=== PATIENT | male | born 1980 | race African-American/Black ===

== ENCOUNTER 2017-07-15 16:19 | Inpatient (IN) ==
[2017-07-15] MEDS ORDERED: ASPIRIN 325 MG TABLET PO STA (17:21)
[2017-07-15 17:39] LABS: Basophils # 0.1 10*3/uL (0.0-0.2); Basophils % 0.4 % (0.0-0.8); Eosinophils # 0.1 10*3/uL (0.0-0.87); Eosinophils % 0.6 % (0.00-10.9); Hematocrit 27.7 VOL% (42.0-52.0); Hemoglobin 8.8 GM/DL (14.0-18.0); Immature Granulocytes % 0.4 %; Immature Granulocytes Absolute 0.05 #; Lymphocytes # 1.1 10*3/uL (1.4-4.0); Lymphocytes % 9.1 % (21.2-54.2); Mean Corpuscular HGB Conc 31.8 GM/DL (32-36); Mean Corpuscular Hemoglobin 29 PG (27-34); Mean Corpuscular Volume 90.2 FL (87-102); Mean Platelet Volume 10.4 FL (9.6-12.0); Monocytes # 0.5 10*3/uL (0.11-0.8); Monocytes % 4.3 % (1.7-12.7); Neutrophils # 10.7 10*3/uL (1.4-7.4); Neutrophils % 85.2 % (38.7-73.9); Platelet Count 178 T/CUMM (130-400); Red Blood Count 3.07 MC/CUMM (3.8-5.5); Red Cell Distribution Width 17.3 % (9.3-17.3); White Blood Count 12.5 T/CUMM (4-12)
[2017-07-15] MEDS ORDERED: niCARdipine 25 MG/10 ML VIAL IV ONE (17:44)
[2017-07-15] MEDS: niCARdipine INJ 25 MG in SODIUM CHLORIDE 0.9% 240 ML IV SCH (17:45)
[2017-07-15 17:59] LABS: Calcium 8.3 MG/DL (8.5-10.1); Osmolality,Calculated 307.2 MOS/KG (273-304); Potassium 3.7 MMOL/L (3.5-5.1)
[2017-07-15] MEDS ORDERED: amLODIPine 5 MG TABLET PO STA (18:55)
[2017-07-15 19:13] LABS: Basophils % 0.3 % (0.0-0.8); Eosinophils # 0.1 10*3/uL (0.0-0.87); Eosinophils % 0.5 % (0.00-10.9); Hematocrit 27.1 VOL% (42.0-52.0); Hemoglobin 8.7 GM/DL (14.0-18.0); Immature Granulocytes % 0.4 %; Immature Granulocytes Absolute 0.05 #; Lymphocytes # 1.1 10*3/uL (1.4-4.0); Lymphocytes % 8.4 % (21.2-54.2); Mean Corpuscular HGB Conc 32.1 GM/DL (32-36); Mean Corpuscular Hemoglobin 29 PG (27-34); Mean Corpuscular Volume 89.7 FL (87-102); Mean Platelet Volume 10.5 FL (9.6-12.0); Monocytes # 0.6 10*3/uL (0.11-0.8); Monocytes % 4.7 % (1.7-12.7); Neutrophils # 11.1 10*3/uL (1.4-7.4); Neutrophils % 85.7 % (38.7-73.9); Platelet Count 178 T/CUMM (130-400); Red Blood Count 3.02 MC/CUMM (3.8-5.5); Red Cell Distribution Width 17.5 % (9.3-17.3); White Blood Count 12.9 T/CUMM (4-12)
[2017-07-15 19:30] LABS: Folate 8.2 NG/ML (5.4-24.0); Vitamin B12 1041 PG/ML (211-911)
[2017-07-15 20:12] LABS: Sedimentation Rate-Westergren 46 MM/HR (0-15)
[2017-07-15] MEDS ORDERED: amLODIPine 10 MG TABLET ONE (20:16)
[2017-07-15 20:21] LABS: Band Neutrophils 1 % (0-10); Lymphocytes 6 % (20-55); Platelet Estimate Normal; Segmented Neutrophils 92 % (50-85); Total Cells Counted 100
[2017-07-15] MEDS: ENOXAPARIN 30 MG/0.3 ML SYRINGE SUBCUT SCH (20:31)
[2017-07-15] MEDS: cloNIDine 0.1 MG TABLET PO SCH (20:32)
[2017-07-15] MEDS: ACETAMINOPHEN 325 MG TABLET PO PRN (20:48)
[2017-07-16] MEDS: niCARdipine INJ 25 MG in SODIUM CHLORIDE 0.9% 240 ML IV SCH (00:39)
[2017-07-16] MEDS: ONDANSETRON 4 MG/2 ML VIAL IV PRN ×2 (00:42→06:00)
[2017-07-16 00:53] LABS: Basophils % 0.4 % (0.0-0.8); Eosinophils # 0.1 10*3/uL (0.0-0.87); Eosinophils % 1.1 % (0.00-10.9); Hematocrit 24.9 VOL% (42.0-52.0); Immature Granulocytes % 0.5 %; Immature Granulocytes Absolute 0.06 #; Lymphocytes # 1.5 10*3/uL (1.4-4.0); Lymphocytes % 12.9 % (21.2-54.2); Mean Corpuscular HGB Conc 32.1 GM/DL (32-36); Mean Corpuscular Hemoglobin 29 PG (27-34); Mean Corpuscular Volume 89.6 FL (87-102); Monocytes # 0.7 10*3/uL (0.11-0.8); Monocytes % 5.8 % (1.7-12.7); Neutrophils % 79.3 % (38.7-73.9); Platelet Count 171 T/CUMM (130-400); Red Blood Count 2.78 MC/CUMM (3.8-5.5); Red Cell Distribution Width 17.4 % (9.3-17.3); White Blood Count 11.3 T/CUMM (4-12)
[2017-07-16 01:02] LABS: Calcium 8.2 MG/DL (8.5-10.1); Osmolality,Calculated 304.4 MOS/KG (273-304); Potassium 3.5 MMOL/L (3.5-5.1)
[2017-07-16] MEDS: MORPHINE 4 MG/1 ML VIAL IV PRN (06:01)
[2017-07-16] MEDS: cloNIDine 0.1 MG TABLET PO SCH ×3 (09:50→21:19)
[2017-07-16] MEDS: PANTOPRAZOLE 40 MG TABLET PO SCH (09:50)
[2017-07-16] MEDS: amLODIPine 10 MG TABLET PO SCH (09:50)
[2017-07-16 10:04] LABS: % Iron Saturation 11.4 % (18-50); Albumin 3.5 G/DL (3.4-5.0); Bilirubin,Direct 0.23 MG/DL (0.0-0.20); Bilirubin,Indirect 0.4 MG/DL (0.0-1.0); Bilirubin,Total 0.6 MG/DL (0.2-1.0); Total Protein 6.2 G/DL (6.4-8.3); Uric Acid 12.9 MG/DL (3.5-7.2)
[2017-07-16] MEDS ORDERED: hydrALAZINE 25 MG TABLET PO SCH (10:30)
[2017-07-16 10:34] LABS: Hepatitis A Ab IgM Quant 0.21 Index; Hepatitis A Ab IgM Result Negative (Negative); Hepatitis B Core IgM Quant 0.21 Index; Hepatitis B Core IgM Result Negative (Negative); Hepatitis B Surface Ag Quant < 0.10 Index; Hepatitis B Surface Ag Result Negative (Negative); Hepatitis C Virus Ab Quant 0.18 Index; Hepatitis C Virus Ab Result Negative (Negative)
[2017-07-16 12:42] LABS: Apearance,Urine Clear (Clear); Bilirubin,Urine Negative (Negative); Blood, Urine Negative (Negative); Glucose,Urine (UA) Negative (Negative); Ketones,Urine Negative (Negative); Nitrite,Urine Negative (Negative); Protein,Urine 100 MG/DL; RBC,Urine 0-1 /HPF (0-4); Squamous Epithelial Cell,Urine Occasional /HPF (0-10); Urine Color Yellow (Yellow); Urine Specific Gravity 1.005 (1.001-1.035); Urine Urobilinogen 0.2 EU/DL (0.2-1.0); WBC,Urine 0-3 /HPF (0-6)
[2017-07-16 12:43] LABS: Mucus,Urine Few /LPF (Occasional)
[2017-07-16 13:04] LABS: Barbiturates Screen,Urine Negative (Negative); Benzodiazepines Screen,Urine Negative (Negative); Cannabinoid Screen,Urine Negative (Negative); Opiate Screen,Urine Negative (Negative); Phencyclidine Screen,Urine Negative (Negative)
[2017-07-16 13:37] LABS: Total Protein,Urine Random 147 MG/DL; Urea Nitrogen, Urine Random 679 MG/DL
[2017-07-16] MEDS: ALFUZOSIN 10 MG TABLET PO SCH (17:08)
[2017-07-16] MEDS: ALLOPURINOL 100 MG TABLET PO SCH (17:08)
[2017-07-16] MEDS: CALCITRIOL 0.25 MCG CAPSULE PO SCH (17:08)
[2017-07-16] MEDS: IRON SUCROSE 200 MG in SODIUM CHLORIDE 0.9% 100 ML IV SCH (17:09)
[2017-07-16] MEDS: hydrALAZINE 20 MG/1 ML VIAL IV PRN (19:23)
[2017-07-16] MEDS: ENOXAPARIN 30 MG/0.3 ML SYRINGE SUBCUT SCH (21:19)
[2017-07-17] MEDS: hydrALAZINE 20 MG/1 ML VIAL IV PRN ×2 (01:46→05:35)
[2017-07-17 06:25] LABS: Basophils % 0.4 % (0.0-0.8); Eosinophils # 0.1 10*3/uL (0.0-0.87); Eosinophils % 0.9 % (0.00-10.9); Hematocrit 25.6 VOL% (42.0-52.0); Immature Granulocytes % 0.9 %; Lymphocytes # 1.3 10*3/uL (1.4-4.0); Lymphocytes % 11.6 % (21.2-54.2); Mean Corpuscular HGB Conc 31.3 GM/DL (32-36); Mean Corpuscular Hemoglobin 28 PG (27-34); Mean Corpuscular Volume 90.5 FL (87-102); Mean Platelet Volume 9.8 FL (9.6-12.0); Monocytes # 0.7 10*3/uL (0.11-0.8); Monocytes % 6.9 % (1.7-12.7); NRBC # 0.02 10*3/uL; Neutrophils # 8.5 10*3/uL (1.4-7.4); Neutrophils % 79.3 % (38.7-73.9); Platelet Count 191 T/CUMM (130-400); Red Blood Count 2.83 MC/CUMM (3.8-5.5); Red Cell Distribution Width 17.6 % (9.3-17.3); White Blood Count 10.8 T/CUMM (4-12)
[2017-07-17 06:42] LABS: INR 1.2; PT Patient Result 12.7 SECS; Partial Thromboplastin Time 30.3 SECS (0-40)
[2017-07-17 06:52] LABS: Calcium 8.3 MG/DL (8.5-10.1); Osmolality,Calculated 306.4 MOS/KG (273-304); Potassium 3.8 MMOL/L (3.5-5.1)
[2017-07-17 08:22] LABS: HIV Antigen/Antibody Result Nonreactive (Nonreactive)
[2017-07-17] MEDS ORDERED: EPOETIN ALFA 10,000 UNIT/1 ML VIAL IV ONE (09:18)
[2017-07-17] MEDS: CALCITRIOL 0.25 MCG CAPSULE PO SCH (09:24)
[2017-07-17] MEDS: cloNIDine 0.1 MG TABLET PO SCH (09:24)
[2017-07-17] MEDS: amLODIPine 10 MG TABLET PO SCH (09:24)
[2017-07-17] MEDS: ALFUZOSIN 10 MG TABLET PO SCH (09:24)
[2017-07-17] MEDS: IRON SUCROSE 200 MG in SODIUM CHLORIDE 0.9% 100 ML IV SCH (09:25)
[2017-07-17] MEDS: PANTOPRAZOLE 40 MG TABLET PO SCH (09:25)
[2017-07-17] MEDS: ALLOPURINOL 100 MG TABLET PO SCH (09:25)
[2017-07-17] MEDS ORDERED: CLINDAMYCIN INJ 900 MG in PREMIX 1 EACH IV ONE (11:43)
[2017-07-17] MEDS: CARVEDILOL 6.25 MG TABLET PO SCH ×2 (15:54→21:14)
[2017-07-17] MEDS: ENOXAPARIN 30 MG/0.3 ML SYRINGE SUBCUT SCH (21:13)
[2017-07-18] MEDS: hydrALAZINE 20 MG/1 ML VIAL IV PRN (05:58)
[2017-07-18] MEDS ORDERED: BUPIVACAINE 0.25% 50 ML VIAL ONE (06:18)
[2017-07-18] MEDS ORDERED: LIDOCAINE 1%/EPI INJ 20 ML VIAL ONE (06:18)
[2017-07-18] MEDS ORDERED: HEPARIN 5,000 UNIT/1 ML VIAL ONE (06:18)
[2017-07-18] MEDS ORDERED: CLINDAMYCIN INJ 50 ML IV ONE (06:58)
[2017-07-18] MEDS ORDERED: PROPOFOL 200 MG/20 ML VIAL IV ONE (08:16)
[2017-07-18] MEDS ORDERED: ONDANSETRON 4 MG/2 ML VIAL ONE (08:16)
[2017-07-18] MEDS ORDERED: SODIUM CHLORIDE 0.9% 100 ML IV ONE (08:16)
[2017-07-18] MEDS ORDERED: fentaNYL 100 MCG/2 ML VIAL ONE (08:16)
[2017-07-18] MEDS ORDERED: MIDAZOLAM 2 MG/2 ML VIAL ONE (08:16)
[2017-07-18] MEDS: amLODIPine 10 MG TABLET PO SCH (08:39)
[2017-07-18] MEDS: CALCITRIOL 0.25 MCG CAPSULE PO SCH (08:39)
[2017-07-18] MEDS: PANTOPRAZOLE 40 MG TABLET PO SCH (08:39)
[2017-07-18] MEDS: ALLOPURINOL 100 MG TABLET PO SCH (08:39)
[2017-07-18] MEDS: CARVEDILOL 6.25 MG TABLET PO SCH ×2 (08:39→20:58)
[2017-07-18] MEDS: ALFUZOSIN 10 MG TABLET PO SCH (08:39)
[2017-07-18] MEDS: IRON SUCROSE 200 MG in SODIUM CHLORIDE 0.9% 100 ML IV SCH (08:43)
[2017-07-18 09:19] LABS: Basophils % 0.3 % (0.0-0.8); Eosinophils # 0.1 10*3/uL (0.0-0.87); Eosinophils % 1.2 % (0.00-10.9); Hematocrit 25.5 VOL% (42.0-52.0); Hemoglobin 8.3 GM/DL (14.0-18.0); Immature Granulocytes % 1.8 %; Immature Granulocytes Absolute 0.19 #; Lymphocytes # 1.2 10*3/uL (1.4-4.0); Lymphocytes % 11.2 % (21.2-54.2); Mean Corpuscular HGB Conc 32.5 GM/DL (32-36); Mean Corpuscular Hemoglobin 29 PG (27-34); Mean Corpuscular Volume 89.2 FL (87-102); Mean Platelet Volume 10.4 FL (9.6-12.0); Monocytes # 0.8 10*3/uL (0.11-0.8); Monocytes % 7.5 % (1.7-12.7); NRBC # 0.03 10*3/uL; Neutrophils # 8.3 10*3/uL (1.4-7.4); Platelet Count 204 T/CUMM (130-400); Red Blood Count 2.86 MC/CUMM (3.8-5.5); Red Cell Distribution Width 18.4 % (9.3-17.3); White Blood Count 10.6 T/CUMM (4-12)
[2017-07-18 09:39] LABS: Calcium 8.2 MG/DL (8.5-10.1); Osmolality,Calculated 300.8 MOS/KG (273-304); Potassium 3.9 MMOL/L (3.5-5.1)
[2017-07-18 09:42] LABS: Hepatitis A Ab IgM Quant 0.25 Index; Hepatitis A Ab IgM Result Negative (Negative); Hepatitis B Core IgM Quant 0.21 Index; Hepatitis B Core IgM Result Negative (Negative); Hepatitis B Surface Ag Quant < 0.10 Index; Hepatitis B Surface Ag Result Negative (Negative); Hepatitis C Virus Ab Quant 0.18 Index; Hepatitis C Virus Ab Result Negative (Negative)
[2017-07-18 10:37] LABS: ANA Screen 0.2 (NEGATIVE)
[2017-07-18] MEDS ORDERED: HEPARIN 10,000 UNIT/10 ML VIAL IV PRN (11:36)
[2017-07-18] MEDS ORDERED: EPOETIN ALFA 10,000 UNIT/1 ML VIAL IV PRN (11:43)
[2017-07-18] MEDS: ACETAMINOPHEN 325 MG TABLET PO PRN (15:52)
[2017-07-18] MEDS: MORPHINE 4 MG/1 ML VIAL IV PRN (20:58)
[2017-07-18] MEDS: ENOXAPARIN 30 MG/0.3 ML SYRINGE SUBCUT SCH (21:00)
[2017-07-18] MEDS: ONDANSETRON 4 MG/2 ML VIAL IV PRN (21:36)
[2017-07-19] MEDS: hydrALAZINE 20 MG/1 ML VIAL IV PRN (01:03)
[2017-07-19] MEDS: ACETAMINOPHEN 325 MG TABLET PO PRN (03:01)
[2017-07-19] MEDS: ONDANSETRON 4 MG/2 ML VIAL IV PRN (03:05)
[2017-07-19 06:58] LABS: Basophils % 0.4 % (0.0-0.8); Eosinophils # 0.1 10*3/uL (0.0-0.87); Eosinophils % 0.5 % (0.00-10.9); Hematocrit 25.6 VOL% (42.0-52.0); Hemoglobin 8.1 GM/DL (14.0-18.0); Immature Granulocytes % 1.5 %; Immature Granulocytes Absolute 0.17 #; Lymphocytes # 0.9 10*3/uL (1.4-4.0); Lymphocytes % 7.8 % (21.2-54.2); Mean Corpuscular HGB Conc 31.6 GM/DL (32-36); Mean Corpuscular Hemoglobin 29 PG (27-34); Mean Corpuscular Volume 90.8 FL (87-102); Mean Platelet Volume 11.2 FL (9.6-12.0); Monocytes # 0.9 10*3/uL (0.11-0.8); Monocytes % 7.7 % (1.7-12.7); NRBC # 0.02 10*3/uL; Neutrophils % 82.1 % (38.7-73.9); Platelet Count 224 T/CUMM (130-400); Red Blood Count 2.82 MC/CUMM (3.8-5.5); Red Cell Distribution Width 18.1 % (9.3-17.3)
[2017-07-19 07:23] LABS: Albumin 3.4 G/DL (3.4-5.0); Calcium 8.5 MG/DL (8.5-10.1); Osmolality,Calculated 297.5 MOS/KG (273-304); Potassium 3.9 MMOL/L (3.5-5.1)
[2017-07-19] MEDS: IRON SUCROSE 200 MG in SODIUM CHLORIDE 0.9% 100 ML IV SCH (08:11)
[2017-07-19] MEDS: CARVEDILOL 6.25 MG TABLET PO SCH ×2 (08:11→20:59)
[2017-07-19] MEDS: PANTOPRAZOLE 40 MG TABLET PO SCH (08:11)
[2017-07-19] MEDS: ALFUZOSIN 10 MG TABLET PO SCH (08:11)
[2017-07-19] MEDS: CALCITRIOL 0.25 MCG CAPSULE PO SCH (08:11)
[2017-07-19] MEDS: ALLOPURINOL 100 MG TABLET PO SCH (08:11)
[2017-07-19] MEDS: amLODIPine 10 MG TABLET PO SCH (08:11)
[2017-07-19 15:21] LABS: Myeloperoxidase Antibody < 0.2 U
[2017-07-19] MEDS: IBUPROFEN 600 MG TABLET PO SCH (20:59)
[2017-07-19] MEDS: ENOXAPARIN 30 MG/0.3 ML SYRINGE SUBCUT SCH (21:00)
[2017-07-20] MEDS: hydrALAZINE 20 MG/1 ML VIAL IV PRN (05:55)
[2017-07-20 07:37] LABS: Albumin 3.2 G/DL (3.4-5.0); Calcium 8.4 MG/DL (8.5-10.1); Osmolality,Calculated 285.4 MOS/KG (273-304); Potassium 3.6 MMOL/L (3.5-5.1)
[2017-07-20] MEDS ORDERED: LOSARTAN 25 MG TABLET PO SCH (09:00)
[2017-07-20] MEDS: amLODIPine 10 MG TABLET PO SCH (14:15)
[2017-07-20] MEDS: IBUPROFEN 600 MG TABLET PO SCH (14:16)
[2017-07-20] MEDS: PANTOPRAZOLE 40 MG TABLET PO SCH (14:16)
[2017-07-20] MEDS: ALFUZOSIN 10 MG TABLET PO SCH (14:16)
[2017-07-20] MEDS: CALCITRIOL 0.25 MCG CAPSULE PO SCH (14:16)
[2017-07-20] MEDS: CARVEDILOL 6.25 MG TABLET PO SCH (14:17)
[2017-07-20] MEDS: ALLOPURINOL 100 MG TABLET PO SCH (14:17)
[2017-07-20] MEDS: IRON SUCROSE 200 MG in SODIUM CHLORIDE 0.9% 100 ML IV SCH (14:21)
[2017-07-20 17:29] VITALS: BP 158/80
== END 2017-07-20 15:38 | disposition home or self-care (01) | DRG 674 ==
LOC: N.ED 16:19 → N.EDINP 18:26 → SUATTDRO 18:26 → N.CC 19:24 → N.5E 07-17 14:04
PROVIDERS: ADMIT Hospitalist; ATTEND Internal Medicine

== ENCOUNTER 2018-04-08 14:30 | Inpatient (IN) ==
[2018-04-08 15:33] LABS: Basophils % 0.2 % (0.0-0.8); Eosinophils # 0.4 10*3/uL (0.0-0.87); Eosinophils % 3.8 % (0.00-10.9); Hematocrit 33.6 VOL% (42.0-52.0); Hemoglobin 10.6 GM/DL (14.0-18.0); Immature Granulocytes % 0.3 %; Immature Granulocytes Absolute 0.03 #; Lymphocytes # 1.3 10*3/uL (1.4-4.0); Lymphocytes % 13.3 % (21.2-54.2); Mean Corpuscular HGB Conc 31.5 GM/DL (32-36); Mean Corpuscular Hemoglobin 31 PG (27-34); Mean Corpuscular Volume 97.1 FL (87-102); Monocytes # 0.6 10*3/uL (0.11-0.8); Monocytes % 6.3 % (1.7-12.7); Neutrophils # 7.2 10*3/uL (1.4-7.4); Neutrophils % 76.1 % (38.7-73.9); Platelet Count 161 T/CUMM (130-400); Red Blood Count 3.46 MC/CUMM (3.8-5.5); Red Cell Distribution Width 14.2 % (9.3-17.3); White Blood Count 9.4 T/CUMM (4-12)
[2018-04-08 15:46] LABS: Apearance,Urine CLEAR (Clear); Bilirubin,Urine Negative (Negative); Blood, Urine Negative (Negative); Glucose,Urine (UA) Negative (Negative); Ketones,Urine Negative (Negative); Mucus,Urine Occasional /LPF (Occasional); Nitrite,Urine Negative (Negative); Protein,Urine 100 MG/DL; RBC,Urine 1 /HPF (0-4); Squamous Epithelial Cell,Urine Occasional /HPF (0-10); Urine Color Yellow (Yellow); Urine Specific Gravity 1.014 (1.001-1.035); Urine Urobilinogen < 2.0 EU/DL (0.2-1.0); WBC,Urine 1 /HPF (0-6)
[2018-04-08] MEDS ORDERED: LEVOFLOXACIN INJ 500 MG in PREMIX 1 EACH IV STA (15:50)
[2018-04-08 15:52] LABS: Calcium 7.6 MG/DL (8.5-10.1); Osmolality,Calculated 288.5 MOS/KG (273-304); Potassium 4.8 MMOL/L (3.5-5.1)
[2018-04-08] MEDS ORDERED: hydrALAZINE 20 MG/1 ML VIAL IV STA ×2 (16:17→18:05)
[2018-04-08 16:27] LABS: Barbiturates Screen,Urine Negative (Negative); Benzodiazepines Screen,Urine Negative (Negative); Cannabinoid Screen,Urine Positive (Negative); Opiate Screen,Urine Negative (Negative); Phencyclidine Screen,Urine Negative (Negative)
[2018-04-08] MEDS ORDERED: FUROSEMIDE 40 MG/4 ML VIAL IV STA (17:11)
[2018-04-08] MEDS ORDERED: NICOTINE 21 MG/24 HR PATCH TRANSDERM PRN (18:06)
[2018-04-08] MEDS ORDERED: hydrALAZINE 20 MG/1 ML VIAL IV PRN (18:41)
[2018-04-08] MEDS: amLODIPine 10 MG TABLET PO SCH (23:36)
[2018-04-08] MEDS: LOSARTAN 25 MG TABLET PO SCH (23:47)
[2018-04-09 05:19] LABS: Basophils % 0.3 % (0.0-0.8); Eosinophils # 0.2 10*3/uL (0.0-0.87); Eosinophils % 1.2 % (0.00-10.9); Hematocrit 35.4 VOL% (42.0-52.0); Hemoglobin 11.7 GM/DL (14.0-18.0); Immature Granulocytes % 0.4 %; Immature Granulocytes Absolute 0.05 #; Lymphocytes % 7.9 % (21.2-54.2); Mean Corpuscular HGB Conc 33.1 GM/DL (32-36); Mean Corpuscular Hemoglobin 31 PG (27-34); Mean Corpuscular Volume 94.9 FL (87-102); Mean Platelet Volume 10.7 FL (9.6-12.0); Monocytes # 0.7 10*3/uL (0.11-0.8); Monocytes % 5.4 % (1.7-12.7); Neutrophils # 10.2 10*3/uL (1.4-7.4); Neutrophils % 84.8 % (38.7-73.9); Platelet Count 178 T/CUMM (130-400); Red Blood Count 3.73 MC/CUMM (3.8-5.5); Red Cell Distribution Width 13.8 % (9.3-17.3)
[2018-04-09 05:46] LABS: Calcium 8.1 MG/DL (8.5-10.1); Osmolality,Calculated 291.4 MOS/KG (273-304); Risk Ratio 2.54; Thyroid Stimulating Hormone 1.32 uIU/ml (0.358-3.74); VLDL CHOLESTEROL 10.8 MG/DL
[2018-04-09] MEDS ORDERED: CARVEDILOL 6.25 MG TABLET PO SCH (08:00)
[2018-04-09] MEDS: amLODIPine 10 MG TABLET PO SCH (08:41)
[2018-04-09] MEDS: ACETAMINOPHEN 325 MG TABLET PO PRN ×3 (08:41→17:39)
[2018-04-09] MEDS: LOSARTAN 25 MG TABLET PO SCH ×2 (08:41→21:19)
[2018-04-09] MEDS: PANTOPRAZOLE 40 MG TABLET PO SCH (08:42)
[2018-04-09] MEDS: FUROSEMIDE 40 MG/4 ML VIAL IV SCH (08:42)
[2018-04-09] MEDS ORDERED: LABETALOL 20 MG/4 ML SYRINGE IV ONE (13:40)
[2018-04-09] MEDS: CARVEDILOL 12.5 MG TABLET PO SCH (17:02)
[2018-04-09] MEDS: NIFEdipine 10 MG CAPSULE PO PRN (17:06)
[2018-04-09] MEDS ORDERED: ONDANSETRON 4 MG/2 ML VIAL IV PRN (17:11)
[2018-04-10] MEDS: ACETAMINOPHEN 325 MG TABLET PO PRN ×2 (01:28→14:53)
[2018-04-10 07:20] LABS: Basophils % 0.3 % (0.0-0.8); Eosinophils # 0.1 10*3/uL (0.0-0.87); Eosinophils % 0.6 % (0.00-10.9); Hematocrit 38.5 VOL% (42.0-52.0); Hemoglobin 12.2 GM/DL (14.0-18.0); Immature Granulocytes % 0.3 %; Immature Granulocytes Absolute 0.03 #; Lymphocytes # 1.5 10*3/uL (1.4-4.0); Lymphocytes % 15.3 % (21.2-54.2); Mean Corpuscular HGB Conc 31.7 GM/DL (32-36); Mean Corpuscular Hemoglobin 30 PG (27-34); Mean Platelet Volume 11.1 FL (9.6-12.0); Monocytes # 0.8 10*3/uL (0.11-0.8); Monocytes % 7.7 % (1.7-12.7); Neutrophils # 7.4 10*3/uL (1.4-7.4); Neutrophils % 75.8 % (38.7-73.9); Platelet Count 201 T/CUMM (130-400); Red Blood Count 4.01 MC/CUMM (3.8-5.5); Red Cell Distribution Width 14.3 % (9.3-17.3); White Blood Count 9.8 T/CUMM (4-12)
[2018-04-10 07:40] LABS: Calcium 8.3 MG/DL (8.5-10.1); Osmolality,Calculated 287.7 MOS/KG (273-304); Potassium 3.4 MMOL/L (3.5-5.1)
[2018-04-10 09:02] LABS: Hepatitis A Ab IgM Quant 0.17 Index; Hepatitis A Ab IgM Result Negative (Negative); Hepatitis B Core IgM Quant 0.14 Index; Hepatitis B Core IgM Result Negative (Negative); Hepatitis B Surface Ag Quant < 0.10 Index; Hepatitis B Surface Ag Result Negative (Negative); Hepatitis C Virus Ab Quant 0.06 Index; Hepatitis C Virus Ab Result Negative (Negative)
[2018-04-10] MEDS: NIFEdipine 10 MG CAPSULE PO PRN (14:44)
[2018-04-10] MEDS: LOSARTAN 25 MG TABLET PO SCH ×2 (14:44→21:19)
[2018-04-10] MEDS: FUROSEMIDE 40 MG/4 ML VIAL IV SCH (14:44)
[2018-04-10] MEDS: CARVEDILOL 12.5 MG TABLET PO SCH ×2 (14:44→16:36)
[2018-04-10] MEDS: amLODIPine 10 MG TABLET PO SCH (14:44)
[2018-04-10] MEDS: PANTOPRAZOLE 40 MG TABLET PO SCH (14:45)
[2018-04-11 05:50] LABS: Basophils % 0.3 % (0.0-0.8); Eosinophils # 0.1 10*3/uL (0.0-0.87); Eosinophils % 1.4 % (0.00-10.9); Hematocrit 41.9 VOL% (42.0-52.0); Hemoglobin 13.6 GM/DL (14.0-18.0); Immature Granulocytes % 0.4 %; Immature Granulocytes Absolute 0.04 #; Lymphocytes % 19.9 % (21.2-54.2); Mean Corpuscular HGB Conc 32.5 GM/DL (32-36); Mean Corpuscular Hemoglobin 31 PG (27-34); Mean Platelet Volume 10.7 FL (9.6-12.0); Monocytes # 0.9 10*3/uL (0.11-0.8); Monocytes % 8.8 % (1.7-12.7); Neutrophils # 6.9 10*3/uL (1.4-7.4); Neutrophils % 69.2 % (38.7-73.9); Platelet Count 234 T/CUMM (130-400); Red Blood Count 4.41 MC/CUMM (3.8-5.5); Red Cell Distribution Width 14.1 % (9.3-17.3); White Blood Count 9.9 T/CUMM (4-12)
[2018-04-11 05:50] LABS: Calcium 8.7 MG/DL (8.5-10.1); Potassium 3.4 MMOL/L (3.5-5.1)
[2018-04-11 05:52] LABS: Calcium 8.6 MG/DL (8.5-10.1); Osmolality,Calculated 281.8 MOS/KG (273-304); Potassium 3.5 MMOL/L (3.5-5.1)
[2018-04-11] MEDS: LOSARTAN 25 MG TABLET PO SCH ×2 (10:02→22:06)
[2018-04-11] MEDS: CARVEDILOL 12.5 MG TABLET PO SCH ×2 (10:02→17:35)
[2018-04-11] MEDS: NIFEdipine 10 MG CAPSULE PO PRN (10:02)
[2018-04-11] MEDS: PANTOPRAZOLE 40 MG TABLET PO SCH (10:02)
[2018-04-11] MEDS: cloNIDine 0.1 MG TABLET PO SCH ×3 (10:02→22:05)
[2018-04-11] MEDS: amLODIPine 10 MG TABLET PO SCH (10:02)
[2018-04-11] MEDS: FUROSEMIDE 40 MG/4 ML VIAL IV SCH (10:14)
[2018-04-12 06:09] LABS: Albumin 3.7 G/DL (3.4-5.0); Calcium 8.1 MG/DL (8.5-10.1); Potassium 3.7 MMOL/L (3.5-5.1)
[2018-04-12] MEDS: CARVEDILOL 12.5 MG TABLET PO SCH ×2 (13:28→17:01)
[2018-04-12] MEDS: cloNIDine 0.1 MG TABLET PO SCH ×3 (13:29→23:19)
[2018-04-12] MEDS: LOSARTAN 25 MG TABLET PO SCH ×2 (13:30→23:19)
[2018-04-12] MEDS: FUROSEMIDE 40 MG/4 ML VIAL IV SCH (13:30)
[2018-04-12] MEDS: amLODIPine 10 MG TABLET PO SCH (13:33)
[2018-04-12] MEDS: PANTOPRAZOLE 40 MG TABLET PO SCH (13:33)
[2018-04-13 08:42] LABS: Calcium 7.6 MG/DL (8.5-10.1); Osmolality,Calculated 282.4 MOS/KG (273-304); Potassium 3.8 MMOL/L (3.5-5.1)
[2018-04-13] MEDS: amLODIPine 10 MG TABLET PO SCH (09:18)
[2018-04-13] MEDS: CARVEDILOL 12.5 MG TABLET PO SCH (09:19)
[2018-04-13] MEDS: PANTOPRAZOLE 40 MG TABLET PO SCH (09:19)
[2018-04-13] MEDS: LOSARTAN 25 MG TABLET PO SCH (09:19)
[2018-04-13] MEDS: cloNIDine 0.1 MG TABLET PO SCH (09:19)
[2018-04-13] MEDS: FUROSEMIDE 40 MG/4 ML VIAL IV SCH ×2 (09:19→09:20)
[2018-04-13 12:42] VITALS: BP 150/87
== END 2018-04-13 14:02 | disposition home or self-care (01) | DRG 291 ==
LOC: N.ED 14:30 → N.EDINP 18:04 → SUATTDRO 18:04 → N.EDINP 18:53 → N.5E 19:26
PROVIDERS: ADMIT Internal Medicine; ATTEND Internal Medicine Cardiovascular Disease

== ENCOUNTER 2020-06-11 17:19 | Inpatient (IN) ==
[2020-06-11] MEDS ORDERED: LABETALOL 20 MG/4 ML SYRINGE IV STA (18:12)
[2020-06-11 18:27] LABS: Eosinophils # 0.1 10*3/uL (0.0-0.87); Eosinophils % 1.7 % (0.00-10.9); Mean Platelet Volume 9.5 FL (9.6-12.0); Red Blood Count 3.77 MC/CUMM (3.8-5.5)
[2020-06-11 18:44] LABS: Albumin 3.2 G/DL (3.4-5.0); Bilirubin,Total 1.9 MG/DL (0.2-1.0); Calcium 7.4 MG/DL (8.5-10.1); Potassium 4.3 MMOL/L (3.5-5.1); Total Protein 6.7 G/DL (6.4-8.2)
[2020-06-11 18:49] LABS: Basophils % 0.6 % (0.0-0.8); Hematocrit 27.2 VOL% (42.0-52.0); Immature Granulocytes % 0.3 %; Immature Granulocytes Absolute 0.02 #; Lymphocytes # 0.5 10*3/uL (1.4-4.0); Lymphocytes % 7.8 % (21.2-54.2); Mean Corpuscular HGB Conc 27.2 GM/DL (32-36); Mean Corpuscular Volume 72.1 FL (87-102); Monocytes % 9.4 % (1.7-12.7); Neutrophils % 80.2 % (38.7-73.9); Platelet Count 174 T/CUMM (130-400); Red Cell Distribution Width 19.9 % (9.3-17.3); White Blood Count 6.4 T/CUMM (4-12)
[2020-06-11 18:53] LABS: Hemoglobin 7.4 GM/DL (14.0-18.0)
[2020-06-11 18:55] LABS: INR 1.4; PT Patient Result 14.3 SECS (9.8-11.9)
[2020-06-11 19:14] LABS: Hypochromasia 2+; Polychromasia Slight; Target Cells Few
[2020-06-11 19:15] LABS: Platelet Estimate Normal
[2020-06-11] MEDS ORDERED: GLUCAGON 1 MG VIAL IM PRN (19:35)
[2020-06-11] MEDS ORDERED: DEXTROSE 50% 25 GM/50 ML VIAL IV PRN (19:35)
[2020-06-11] MEDS ORDERED: niCARdipine INJ 25 MG in SODIUM CHLORIDE 0.9% 240 ML IV SCH (20:00)
[2020-06-11] MEDS ORDERED: niCARdipine 25 MG/10 ML VIAL IV ONE (20:01)
[2020-06-11 20:26] LABS: % Iron Saturation 4.5 % (18-50); Ferritin 52.3 ng/ml (26-388)
[2020-06-11 20:29] LABS: Folate 12.5 NG/ML (5.38-24.0); Vitamin B12 800 PG/ML (211-911)
[2020-06-11 20:53] LABS: Basophils % 0.5 % (0.0-0.8); Eosinophils # 0.1 10*3/uL (0.0-0.87); Eosinophils % 1.5 % (0.00-10.9); Hematocrit 28.1 VOL% (42.0-52.0); Immature Granulocytes % 0.3 %; Immature Granulocytes Absolute 0.02 #; Lymphocytes # 0.6 10*3/uL (1.4-4.0); Lymphocytes % 8.4 % (21.2-54.2); Mean Corpuscular HGB Conc 27.4 GM/DL (32-36); Mean Corpuscular Volume 72.8 FL (87-102); Mean Platelet Volume 10.4 FL (9.6-12.0); Monocytes % 10.2 % (1.7-12.7); Neutrophils % 79.1 % (38.7-73.9); Platelet Count 193 T/CUMM (130-400); Red Blood Count 3.86 MC/CUMM (3.8-5.5); Red Cell Distribution Width 20.1 % (9.3-17.3); White Blood Count 6.6 T/CUMM (4-12)
[2020-06-11 20:54] LABS: Hemoglobin 7.7 GM/DL (14.0-18.0)
[2020-06-11] MEDS: carvediloL 6.25 MG TABLET PO SCH (20:59)
[2020-06-11] MEDS: HEPARIN 5,000 UNIT/1 ML VIAL SUBCUT SCH (20:59)
[2020-06-11] MEDS: cloNIDine 0.1 MG TABLET PO SCH (20:59)
[2020-06-11 21:58] LABS: Sedimentation Rate-Westergren 19 MM/HR (0-15)
[2020-06-11 22:01] LABS: Hypochromasia 1+; Microcytosis Slight; Polychromasia Slight
[2020-06-11] MEDS: niCARdipine INJ 50 MG in SODIUM CHLORIDE 0.9% 480 ML IV SCH (23:02)
[2020-06-12] MEDS: HEPARIN 5,000 UNIT/1 ML VIAL SUBCUT SCH ×3 (05:35→20:49)
[2020-06-12 05:42] LABS: Basophils % 0.7 % (0.0-0.8); Eosinophils # 0.1 10*3/uL (0.0-0.87); Eosinophils % 2.3 % (0.00-10.9); Hemoglobin 7.4 GM/DL (14.0-18.0); Immature Granulocytes % 0.3 %; Immature Granulocytes Absolute 0.02 #; Lymphocytes # 0.6 10*3/uL (1.4-4.0); Mean Corpuscular HGB Conc 28.5 GM/DL (32-36); Mean Corpuscular Volume 70.1 FL (87-102); Mean Platelet Volume 9.7 FL (9.6-12.0); Monocytes % 10.3 % (1.7-12.7); Neutrophils % 76.4 % (38.7-73.9); Platelet Count 177 T/CUMM (130-400); Red Blood Count 3.71 MC/CUMM (3.8-5.5)
[2020-06-12] MEDS: niCARdipine INJ 50 MG in SODIUM CHLORIDE 0.9% 480 ML IV SCH ×3 (06:02→22:47)
[2020-06-12 06:04] LABS: Eosinophils 5 % (0-10); Lymphocytes 5 % (20-55); Segmented Neutrophils 82 % (50-85); Total Cells Counted 100
[2020-06-12 06:05] LABS: Hypochromasia 2+; Microcytosis 1+; Polychromasia Slight
[2020-06-12 06:06] LABS: Platelet Estimate Adequate
[2020-06-12 06:07] LABS: Calcium 7.5 MG/DL (8.5-10.1); Osmolality,Calculated 294.7 MOS/KG (273-304); Potassium 3.9 MMOL/L (3.5-5.1); Thyroid Stimulating Hormone 2.96 uIU/ml (0.358-3.74)
[2020-06-12 08:02] LABS: Hemoglobin A1 (Alkaline) 97.4 % (96.5-98.5); Hemoglobin A2 (Alkaline) 2.6 % (1.5-3.5)
[2020-06-12] MEDS: cloNIDine 0.1 MG TABLET PO SCH ×2 (09:23→20:49)
[2020-06-12] MEDS: carvediloL 6.25 MG TABLET PO SCH ×2 (09:23→17:10)
[2020-06-13] MEDS: HEPARIN 5,000 UNIT/1 ML VIAL SUBCUT SCH ×3 (05:29→22:00)
[2020-06-13 05:34] LABS: Basophils % 0.5 % (0.0-0.8); Eosinophils # 0.2 10*3/uL (0.0-0.87); Eosinophils % 2.8 % (0.00-10.9); Hematocrit 26.2 VOL% (42.0-52.0); Hemoglobin 7.4 GM/DL (14.0-18.0); Immature Granulocytes % 0.4 %; Immature Granulocytes Absolute 0.03 #; Lymphocytes # 0.7 10*3/uL (1.4-4.0); Lymphocytes % 8.3 % (21.2-54.2); Mean Corpuscular HGB Conc 28.2 GM/DL (32-36); Mean Corpuscular Volume 70.2 FL (87-102); Mean Platelet Volume 9.3 FL (9.6-12.0); Monocytes % 9.9 % (1.7-12.7); Neutrophils % 78.1 % (38.7-73.9); Platelet Count 173 T/CUMM (130-400); Red Blood Count 3.73 MC/CUMM (3.8-5.5); Red Cell Distribution Width 19.9 % (9.3-17.3); White Blood Count 8.3 T/CUMM (4-12)
[2020-06-13 05:36] LABS: Bilirubin,Total 2.3 MG/DL (0.2-1.0); Calcium 7.8 MG/DL (8.5-10.1); Osmolality,Calculated 287.5 MOS/KG (273-304); Potassium 3.6 MMOL/L (3.5-5.1); Total Protein 6.2 G/DL (6.4-8.2)
[2020-06-13 05:58] LABS: Hypochromasia 2+
[2020-06-13 05:59] LABS: Microcytosis 1+; Ovalocytes Slight; Platelet Estimate Adequate; Polychromasia Slight; Target Cells Slight
[2020-06-13] MEDS: cloNIDine 0.1 MG TABLET PO SCH ×2 (08:42→22:00)
[2020-06-13] MEDS: carvediloL 6.25 MG TABLET PO SCH ×2 (08:42→16:02)
[2020-06-13] MEDS ORDERED: ONDANSETRON 4 MG/2 ML VIAL IV PRN (09:03)
[2020-06-13] MEDS: niCARdipine INJ 50 MG in SODIUM CHLORIDE 0.9% 480 ML IV SCH ×2 (11:24→22:07)
[2020-06-14] MEDS: HEPARIN 5,000 UNIT/1 ML VIAL SUBCUT SCH ×3 (05:31→20:19)
[2020-06-14] MEDS: ACETAMINOPHEN 325 MG TABLET PO PRN ×2 (06:07→11:20)
[2020-06-14] MEDS: carvediloL 6.25 MG TABLET PO SCH ×2 (06:53→07:46)
[2020-06-14] MEDS: cloNIDine 0.1 MG TABLET PO SCH ×3 (06:53→20:18)
[2020-06-14] MEDS: hydrALAZINE 20 MG/1 ML VIAL IV PRN ×3 (10:09→16:20)
[2020-06-14] MEDS ORDERED: POLYETHYLENE GLYCOL POWDER 17 GM PACK PO PRN (14:17)
[2020-06-14] MEDS ORDERED: cloNIDine 0.1 MG TABLET PO ONE (16:06)
[2020-06-14] MEDS: amLODIPine 10 MG TABLET PO SCH (16:21)
[2020-06-14] MEDS: carvediloL 12.5 MG TABLET PO SCH (20:18)
[2020-06-14] MEDS: DOXAZOSIN 1 MG TABLET PO SCH (20:21)
[2020-06-15] MEDS: niCARdipine INJ 50 MG in SODIUM CHLORIDE 0.9% 480 ML IV SCH (01:28)
[2020-06-15] MEDS: HEPARIN 5,000 UNIT/1 ML VIAL SUBCUT SCH ×3 (05:50→21:33)
[2020-06-15] MEDS: cloNIDine 0.1 MG TABLET PO SCH ×2 (08:27→21:36)
[2020-06-15] MEDS: amLODIPine 10 MG TABLET PO SCH (08:30)
[2020-06-15] MEDS: carvediloL 12.5 MG TABLET PO SCH ×2 (08:30→21:36)
[2020-06-15] MEDS: DOCUSATE SODIUM 100 MG CAPSULE PO SCH ×2 (10:23→21:36)
[2020-06-15] MEDS: ACETAMINOPHEN 325 MG TABLET PO PRN (10:30)
[2020-06-15] MEDS ORDERED: BISACODYL 10 MG SUPP RECTAL ONE (12:27)
[2020-06-15] MEDS ORDERED: POLYETHYLENE GLYCOL 3350/ELECTROLYTES 4,000 ML BOTTLE PO ONE (12:59)
[2020-06-15] MEDS: LACTULOSE 20 GM/30 ML UDCUP PO SCH ×2 (15:42→21:44)
[2020-06-15] MEDS: DOXAZOSIN 1 MG TABLET PO SCH (21:36)
[2020-06-15] MEDS: POLYETHYLENE GLYCOL POWDER 17 GM PACK PO SCH (21:44)
[2020-06-16] MEDS: HEPARIN 5,000 UNIT/1 ML VIAL SUBCUT SCH ×2 (04:12→12:05)
[2020-06-16 05:21] LABS: Calcium 7.8 MG/DL (8.5-10.1); Osmolality,Calculated 288.4 MOS/KG (273-304); Potassium 4.3 MMOL/L (3.5-5.1)
[2020-06-16 05:44] LABS: Basophils % 0.7 % (0.0-0.8); Eosinophils # 0.2 10*3/uL (0.0-0.87); Eosinophils % 4.3 % (0.00-10.9); Hematocrit 26.6 VOL% (42.0-52.0); Hemoglobin 7.2 GM/DL (14.0-18.0); Immature Granulocytes % 0.4 %; Immature Granulocytes Absolute 0.02 #; Lymphocytes # 0.7 10*3/uL (1.4-4.0); Mean Corpuscular HGB Conc 27.1 GM/DL (32-36); Mean Corpuscular Volume 73.1 FL (87-102); Mean Platelet Volume 9.8 FL (9.6-12.0); Monocytes % 11.4 % (1.7-12.7); Neutrophils % 70.2 % (38.7-73.9); Platelet Count 166 T/CUMM (130-400); Red Blood Count 3.64 MC/CUMM (3.8-5.5); Red Cell Distribution Width 19.7 % (9.3-17.3); White Blood Count 5.6 T/CUMM (4-12)
[2020-06-16 06:05] LABS: Hypochromasia 2+; Microcytosis 1+; Platelet Estimate Adequate
[2020-06-16] MEDS ORDERED: LINACLOTIDE 145 MCG CAPSULE PO SCH (07:30)
[2020-06-16] MEDS: POLYETHYLENE GLYCOL POWDER 17 GM PACK PO SCH (08:48)
[2020-06-16] MEDS: LACTULOSE 20 GM/30 ML UDCUP PO SCH ×2 (08:48→15:50)
[2020-06-16] MEDS: carvediloL 12.5 MG TABLET PO SCH (08:48)
[2020-06-16] MEDS: DOCUSATE SODIUM 100 MG CAPSULE PO SCH (08:48)
[2020-06-16] MEDS: amLODIPine 10 MG TABLET PO SCH (08:48)
[2020-06-16] MEDS: cloNIDine 0.1 MG TABLET PO SCH (08:48)
[2020-06-16] MEDS ORDERED: SODIUM CHLORIDE 0.9% 1,000 ML IV PRN (11:34)
[2020-06-16 16:03] VITALS: BP 157/76
[2020-06-16] MEDS ORDERED: DOXAZOSIN 1 MG TABLET PO SCH (21:00)
== END 2020-06-16 17:20 | disposition home or self-care (01) | DRG 291 ==
LOC: N.ED 17:19 → N.EDINP 19:35 → SUATTDRO 19:35 → N.ICU 20:19 → N.2E 06-15 13:28
PROVIDERS: ADMIT Family Medicine; ATTEND Hospitalist

== ENCOUNTER 2020-08-28 17:51 | Inpatient (IN) ==
[2020-08-28] MEDS ORDERED: hydrALAZINE 20 MG/1 ML VIAL IV STA ×2 (18:37→19:29)
[2020-08-28 18:53] LABS: Basophils % 0.4 % (0.0-0.8); Eosinophils # 0.2 10*3/uL (0.0-0.87); Eosinophils % 2.2 % (0.00-10.9); Hematocrit 26.8 VOL% (42.0-52.0); Hemoglobin 7.6 GM/DL (14.0-18.0); Immature Granulocytes % 0.5 %; Immature Granulocytes Absolute 0.04 #; Lymphocytes # 0.8 10*3/uL (1.4-4.0); Lymphocytes % 9.5 % (21.2-54.2); Mean Corpuscular HGB Conc 28.4 GM/DL (32-36); Mean Corpuscular Volume 74.4 FL (87-102); Monocytes % 6.9 % (1.7-12.7); Neutrophils % 80.5 % (38.7-73.9); Platelet Count 170 T/CUMM (130-400); Red Cell Distribution Width 21.9 % (9.3-17.3); White Blood Count 8.6 T/CUMM (4-12)
[2020-08-28 18:59] LABS: Bilirubin,Urine Negative (Negative); Blood, Urine Negative (Negative); Glucose,Urine (UA) Negative (Negative); Ketones,Urine Negative (Negative); Nitrite,Urine Negative (Negative); Protein,Urine >=500 MG/DL; RBC,Urine 4 /HPF (0-4); Squamous Epithelial Cell,Urine Occasional /HPF (0-10); Urine Appearance CLEAR (Clear); Urine Color Yellow (Yellow); Urine Specific Gravity 1.013 (1.001-1.035)
[2020-08-28 19:06] LABS: Albumin 3.1 G/DL (3.4-5.0); Bilirubin,Total 2.4 MG/DL (0.2-1.0); Calcium 7.3 MG/DL (8.5-10.1); Osmolality,Calculated 290.7 MOS/KG (273-304); Potassium 3.7 MMOL/L (3.5-5.1); Total Protein 7.2 G/DL (6.4-8.2)
[2020-08-28 19:07] LABS: Lactic Acid 1.2 MMOL/L (0.4-2.0)
[2020-08-28] MEDS ORDERED: cefTRIAXone 1,000 MG in SODIUM CHLORIDE 0.9% 100 ML IV STA (19:17)
[2020-08-28 19:22] LABS: Hypochromasia 3+; Microcytosis 1+; Platelet Estimate Normal; Polychromasia Few; Target Cells Few
[2020-08-28] MEDS ORDERED: MAGNESIUM SULF RIDER 2 GM/50 ML PREMIX IV PRN (20:28)
[2020-08-28] MEDS ORDERED: ONDANSETRON 4 MG/2 ML VIAL IV PRN (20:28)
[2020-08-28] MEDS ORDERED: DEXTROSE 50% 25 GM/50 ML VIAL IV PRN (20:28)
[2020-08-28] MEDS ORDERED: GLUCAGON 1 MG VIAL IM PRN (20:28)
[2020-08-28] MEDS ORDERED: ACETAMINOPHEN 325 MG TABLET PO PRN (20:28)
[2020-08-28] MEDS ORDERED: MAGNESIUM SULF RIDER 4 GM/100 ML PREMIX IV PRN (20:28)
[2020-08-28] MEDS ORDERED: cefTRIAXone 1,000 MG in SODIUM CHLORIDE 0.9% 100 ML IV SCH (21:00)
[2020-08-28] MEDS: cloNIDine 0.1 MG TABLET PO SCH (22:43)
[2020-08-28] MEDS: carvediloL 12.5 MG TABLET PO SCH (22:43)
[2020-08-28] MEDS: DOXAZOSIN 1 MG TABLET PO SCH (22:44)
[2020-08-28] MEDS: POLYETHYLENE GLYCOL POWDER 17 GM PACK PO SCH (22:44)
[2020-08-29 05:55] LABS: Basophils % 0.4 % (0.0-0.8); Eosinophils # 0.3 10*3/uL (0.0-0.87); Hematocrit 25.3 VOL% (42.0-52.0); Hemoglobin 7.3 GM/DL (14.0-18.0); Immature Granulocytes % 0.4 %; Immature Granulocytes Absolute 0.03 #; Lymphocytes # 0.8 10*3/uL (1.4-4.0); Lymphocytes % 12.1 % (21.2-54.2); Mean Corpuscular HGB Conc 28.9 GM/DL (32-36); Mean Corpuscular Volume 74.2 FL (87-102); Mean Platelet Volume 9.8 FL (9.6-12.0); Monocytes % 8.4 % (1.7-12.7); Neutrophils % 74.7 % (38.7-73.9); Platelet Count 160 T/CUMM (130-400); Red Blood Count 3.41 MC/CUMM (3.8-5.5); Red Cell Distribution Width 21.9 % (9.3-17.3); White Blood Count 6.8 T/CUMM (4-12)
[2020-08-29 06:15] LABS: Calcium 7.3 MG/DL (8.5-10.1); Osmolality,Calculated 292.5 MOS/KG (273-304); Potassium 3.5 MMOL/L (3.5-5.1)
[2020-08-29 06:25] LABS: Hypochromasia 1+; Microcytosis 1+; Platelet Estimate Adequate
[2020-08-29 08:27] LABS: INR 1.3; PT Patient Result 14.2 SECS (10.5-12.0)
[2020-08-29] MEDS: FUROSEMIDE 40 MG/4 ML VIAL IV SCH ×2 (09:11→16:37)
[2020-08-29] MEDS: PANTOPRAZOLE 40 MG TABLET PO SCH (09:12)
[2020-08-29] MEDS: cloNIDine 0.1 MG TABLET PO SCH ×2 (09:12→20:21)
[2020-08-29] MEDS: carvediloL 12.5 MG TABLET PO SCH ×2 (09:12→20:21)
[2020-08-29] MEDS: POLYETHYLENE GLYCOL POWDER 17 GM PACK PO SCH ×2 (11:22→20:21)
[2020-08-29] MEDS ORDERED: HEPARIN 5,000 UNIT/1 ML VIAL SUBCUT SCH (11:30)
[2020-08-29] MEDS: amLODIPine 10 MG TABLET PO SCH (12:42)
[2020-08-29] MEDS: cefTRIAXone 1,000 MG in SODIUM CHLORIDE 0.9% 100 ML IV SCH (18:22)
[2020-08-29] MEDS: DOXAZOSIN 1 MG TABLET PO SCH (20:21)
[2020-08-30 05:56] LABS: Basophils % 0.5 % (0.0-0.8); Eosinophils # 0.2 10*3/uL (0.0-0.87); Eosinophils % 3.4 % (0.00-10.9); Hematocrit 25.7 VOL% (42.0-52.0); Hemoglobin 7.6 GM/DL (14.0-18.0); Immature Granulocytes % 0.5 %; Immature Granulocytes Absolute 0.03 #; Lymphocytes # 0.8 10*3/uL (1.4-4.0); Lymphocytes % 13.4 % (21.2-54.2); Mean Corpuscular HGB Conc 29.6 GM/DL (32-36); Mean Corpuscular Volume 74.1 FL (87-102); Mean Platelet Volume 9.4 FL (9.6-12.0); Monocytes % 9.7 % (1.7-12.7); Neutrophils % 72.5 % (38.7-73.9); Platelet Count 134 T/CUMM (130-400); Red Blood Count 3.47 MC/CUMM (3.8-5.5); Red Cell Distribution Width 22.1 % (9.3-17.3); White Blood Count 5.9 T/CUMM (4-12)
[2020-08-30 06:24] LABS: Hypochromasia 2+; Microcytosis 2+; Polychromasia Slight; Target Cells Few
[2020-08-30 06:25] LABS: Platelet Estimate Adequate
[2020-08-30 06:28] LABS: % Iron Saturation 6.5 % (18-50); Albumin 2.8 G/DL (3.4-5.0); Calcium 7.2 MG/DL (8.5-10.1); Ferritin 70.2 ng/ml (26-388); Osmolality,Calculated 286.8 MOS/KG (273-304); Potassium 3.9 MMOL/L (3.5-5.1); Total Protein 6.5 G/DL (6.4-8.2)
[2020-08-30] MEDS: POLYETHYLENE GLYCOL POWDER 17 GM PACK PO SCH ×2 (15:32→20:27)
[2020-08-30] MEDS: cloNIDine 0.1 MG TABLET PO SCH ×2 (15:32→20:27)
[2020-08-30] MEDS: carvediloL 12.5 MG TABLET PO SCH ×2 (15:33→20:27)
[2020-08-30] MEDS: PANTOPRAZOLE 40 MG TABLET PO SCH (15:33)
[2020-08-30] MEDS: amLODIPine 10 MG TABLET PO SCH (15:33)
[2020-08-30] MEDS: cefTRIAXone 1,000 MG in SODIUM CHLORIDE 0.9% 100 ML IV SCH (17:38)
[2020-08-30] MEDS: DOXAZOSIN 1 MG TABLET PO SCH (20:27)
[2020-08-31] MEDS: carvediloL 12.5 MG TABLET PO SCH (09:44)
[2020-08-31] MEDS: amLODIPine 10 MG TABLET PO SCH (09:44)
[2020-08-31] MEDS: cloNIDine 0.1 MG TABLET PO SCH (09:44)
[2020-08-31] MEDS: PANTOPRAZOLE 40 MG TABLET PO SCH (09:44)
[2020-08-31] MEDS: POLYETHYLENE GLYCOL POWDER 17 GM PACK PO SCH (10:13)
[2020-08-31 13:35] VITALS: BP 161/96
== END 2020-08-31 13:36 | disposition home or self-care (01) | DRG 291 ==
LOC: N.ED 17:51 → SUATTDRO 20:28 → N.EDINP 20:28 → N.3E 22:07
PROVIDERS: ADMIT Internal Medicine; ATTEND Student in an Organized Health Care Education/Training Program

== ENCOUNTER 2020-12-04 18:32 | Observation (INO) ==
[2020-12-04] MEDS ORDERED: MORPHINE 2 MG/1 ML SYRINGE IV STA (19:41)
[2020-12-04] MEDS ORDERED: NITROGLYCERIN 2% OINT 1 INCH/GM PACK TOP STA (19:41)
[2020-12-04] MEDS ORDERED: ONDANSETRON 4 MG/2 ML VIAL IV STA (19:41)
[2020-12-04] MEDS ORDERED: hydrALAZINE 20 MG/1 ML VIAL IV STA ×2 (19:41→21:04)
[2020-12-04 20:03] LABS: Basophils % 0.4 % (0.0-0.8); Eosinophils # 0.4 10*3/uL (0.0-0.87); Eosinophils % 5.2 % (0.00-10.9); Hematocrit 30.1 VOL% (42.0-52.0); Hemoglobin 8.8 GM/DL (14.0-18.0); Immature Granulocytes % 0.4 %; Immature Granulocytes Absolute 0.03 #; Lymphocytes # 0.8 10*3/uL (1.4-4.0); Lymphocytes % 11.8 % (21.2-54.2); Mean Corpuscular HGB Conc 29.2 GM/DL (32-36); Mean Corpuscular Volume 73.8 FL (87-102); Mean Platelet Volume 9.7 FL (9.6-12.0); Monocytes % 10.2 % (1.7-12.7); Platelet Count 130 T/CUMM (130-400); Red Blood Count 4.08 MC/CUMM (3.8-5.5); Red Cell Distribution Width 20.6 % (9.3-17.3); White Blood Count 7.1 T/CUMM (4-12)
[2020-12-04 20:15] LABS: INR 1.4; PT Patient Result 14.8 SECS (10.5-12.0)
[2020-12-04 20:27] LABS: Albumin 3.2 G/DL (3.4-5.0); Calcium 7.7 MG/DL (8.5-10.1); Osmolality,Calculated 297.1 MOS/KG (273-304); Potassium 4.1 MMOL/L (3.5-5.1); Total Protein 7.1 G/DL (6.4-8.2)
[2020-12-04 20:35] LABS: Hypochromasia Slight; Microcytosis 1+
[2020-12-04 20:36] LABS: Platelet Estimate Normal
[2020-12-04] MEDS ORDERED: GLUCAGON 1 MG VIAL IM PRN (21:24)
[2020-12-04] MEDS ORDERED: diphenhydrAMINE CAP 25 MG CAPSULE PO PRN (21:24)
[2020-12-04] MEDS ORDERED: ZALEPLON 5 MG CAPSULE PO PRN (21:24)
[2020-12-04] MEDS ORDERED: DOCUSATE SODIUM 100 MG CAPSULE PO PRN (21:24)
[2020-12-04] MEDS ORDERED: hydrALAZINE 20 MG/1 ML VIAL IV PRN (21:24)
[2020-12-04] MEDS ORDERED: ACETAMINOPHEN 325 MG TABLET PO PRN (21:24)
[2020-12-04] MEDS ORDERED: guaiFENesin/DM ER 600-30 MG TABLET PO PRN (21:24)
[2020-12-04] MEDS ORDERED: NICOTINE 21 MG/24 HR PATCH TRANSDERM PRN (21:24)
[2020-12-04] MEDS ORDERED: DEXTROSE 50% 25 GM/50 ML VIAL IV PRN (21:24)
[2020-12-04] MEDS ORDERED: ONDANSETRON 4 MG/2 ML VIAL IV PRN (21:24)
[2020-12-04] MEDS ORDERED: BISACODYL 5 MG TABLET PO PRN (21:24)
[2020-12-04] MEDS ORDERED: carvediloL 12.5 MG TABLET PO SCH (21:30)
[2020-12-04] MEDS: cloNIDine 0.1 MG TABLET PO SCH (22:04)
[2020-12-05] MEDS: ALBUTEROL/IPRATROPIUM 3 ML NEB RESP TX SCH ×3 (01:26→14:39)
[2020-12-05 07:23] LABS: Calcium 7.3 MG/DL (8.5-10.1); Osmolality,Calculated 289.8 MOS/KG (273-304); Potassium 4.6 MMOL/L (3.5-5.1)
[2020-12-05 08:17] LABS: Basophils % 0.5 % (0.0-0.8); Eosinophils # 0.3 10*3/uL (0.0-0.87); Eosinophils % 5.8 % (0.00-10.9); Hematocrit 28.3 VOL% (42.0-52.0); Immature Granulocytes % 0.4 %; Immature Granulocytes Absolute 0.02 #; Lymphocytes # 0.6 10*3/uL (1.4-4.0); Lymphocytes % 9.7 % (21.2-54.2); Mean Corpuscular HGB Conc 28.6 GM/DL (32-36); Mean Corpuscular Volume 73.5 FL (87-102); Mean Platelet Volume 9.7 FL (9.6-12.0); Monocytes % 11.2 % (1.7-12.7); Neutrophils % 72.4 % (38.7-73.9); Platelet Count 125 T/CUMM (130-400); Red Blood Count 3.85 MC/CUMM (3.8-5.5); Red Cell Distribution Width 20.7 % (9.3-17.3); White Blood Count 5.7 T/CUMM (4-12)
[2020-12-05 08:19] LABS: Hemoglobin 8.1 GM/DL (14.0-18.0)
[2020-12-05] MEDS ORDERED: HEPARIN 5,000 UNIT/1 ML VIAL SUBCUT SCH (09:00)
[2020-12-05] MEDS ORDERED: ASPIRIN EC 81 MG TABLET PO SCH (09:00)
[2020-12-05] MEDS ORDERED: PANTOPRAZOLE 40 MG TABLET PO SCH (09:00)
[2020-12-05] MEDS ORDERED: FUROSEMIDE 80 MG TABLET PO SCH (09:00)
[2020-12-05] MEDS ORDERED: carvediloL 25 MG TABLET PO SCH (09:00)
[2020-12-05] MEDS: SEVELAMER CARBONATE 800 MG TABLET PO SCH ×3 (09:21→16:29)
[2020-12-05] MEDS: cloNIDine 0.1 MG TABLET PO SCH (09:21)
[2020-12-05 12:12] LABS: Barbiturates Screen,Urine Negative (Negative); Benzodiazepines Screen,Urine Negative (Negative); Cannabinoid Screen,Urine Negative (Negative); Opiate Screen,Urine Negative (Negative); Phencyclidine Screen,Urine Negative (Negative)
[2020-12-05 12:45] VITALS: BP 130/87
== END 2020-12-05 18:12 | disposition home or self-care (01) ==
LOC: N.ED 18:32 → N.EDINP 18:32 → SUATTDRO 21:24 → N.TELEN 22:42
PROVIDERS: ADMIT Internal Medicine; ATTEND Internal Medicine

== ENCOUNTER 2021-01-06 21:17 | Inpatient (IN) ==
[2021-01-06] MEDS ORDERED: MORPHINE 2 MG/1 ML SYRINGE IV STA (22:49)
[2021-01-06] MEDS ORDERED: ONDANSETRON 4 MG/2 ML VIAL IV STA (22:49)
[2021-01-07 01:40] LABS: Basophils % 0.1 % (0.0-0.8); Hematocrit 18.8 VOL% (42.0-52.0); Immature Granulocytes % 0.6 %; Immature Granulocytes Absolute 0.08 #; Lymphocytes # 0.6 10*3/uL (1.4-4.0); Lymphocytes % 4.7 % (21.2-54.2); Mean Corpuscular HGB Conc 29.3 GM/DL (32-36); Mean Corpuscular Volume 83.9 FL (87-102); Mean Platelet Volume 10.4 FL (9.6-12.0); Monocytes % 9.1 % (1.7-12.7); Neutrophils % 85.5 % (38.7-73.9); Platelet Count 170 T/CUMM (130-400); Red Blood Count 2.24 MC/CUMM (3.8-5.5); Red Cell Distribution Width 25.7 % (9.3-17.3); White Blood Count 12.4 T/CUMM (4-12)
[2021-01-07] MEDS ORDERED: hydrALAZINE 20 MG/1 ML VIAL IV STA ×2 (01:41→03:24)
[2021-01-07 01:42] LABS: Hemoglobin 5.5 GM/DL (14.0-18.0)
[2021-01-07 01:53] LABS: INR 1.4; PT Patient Result 14.9 SECS (10.5-12.0); Partial Thromboplastin Time 27.9 SECS (23.8-32.1)
[2021-01-07 01:57] LABS: Calcium 7.8 MG/DL (8.5-10.1); Osmolality,Calculated 282.1 MOS/KG (273-304); Potassium 4.4 MMOL/L (3.5-5.1)
[2021-01-07 02:11] LABS: Lymphocytes 1 % (20-55); Segmented Neutrophils 88 % (50-85); Total Cells Counted 100
[2021-01-07 02:13] LABS: Hypochromasia 2+; Platelet Estimate Normal
[2021-01-07] MEDS ORDERED: cloNIDine 0.1 MG TABLET PO STA (03:23)
[2021-01-07] MEDS ORDERED: HYDROmorphone 2 MG/1 ML VIAL IV STA (03:23)
[2021-01-07] MEDS ORDERED: FUROSEMIDE 40 MG/4 ML VIAL IV STA (04:05)
[2021-01-07] MEDS ORDERED: DEXTROSE 50% 25 GM/50 ML VIAL IV PRN (04:06)
[2021-01-07] MEDS ORDERED: SODIUM CHLORIDE 0.9% 1,000 ML IV PRN ×2 (04:06→04:32)
[2021-01-07] MEDS ORDERED: GLUCAGON 1 MG VIAL IM PRN (04:06)
[2021-01-07] MEDS ORDERED: ONDANSETRON 4 MG/2 ML VIAL IV PRN (04:21)
[2021-01-07] MEDS ORDERED: ACETAMINOPHEN 325 MG TABLET PO PRN (04:21)
[2021-01-07] MEDS ORDERED: SIMETHICONE CHEW 125 MG TABLET PO PRN (04:21)
[2021-01-07] MEDS ORDERED: HYDROmorphone 2 MG/1 ML VIAL IV PRN (04:41)
[2021-01-07] MEDS: hydrALAZINE 20 MG/1 ML VIAL IV PRN (07:20)
[2021-01-07] MEDS: DOCUSATE SODIUM 100 MG CAPSULE PO SCH ×2 (09:09→21:23)
[2021-01-07] MEDS: PANTOPRAZOLE 40 MG TABLET PO SCH (09:09)
[2021-01-07] MEDS: FUROSEMIDE 40 MG/4 ML VIAL IV SCH ×2 (09:12→17:33)
[2021-01-07] MEDS: cloNIDine 0.1 MG TABLET PO SCH ×2 (12:57→21:23)
[2021-01-07] MEDS: carvediloL 12.5 MG TABLET PO SCH ×2 (12:57→21:23)
[2021-01-07] MEDS: LOSARTAN 50 MG TABLET PO SCH (12:57)
[2021-01-07] MEDS: SEVELAMER CARBONATE 800 MG TABLET PO SCH ×2 (17:28→21:23)
[2021-01-08 05:43] LABS: Basophils % 0.2 % (0.0-0.8); Eosinophils # 0.1 10*3/uL (0.0-0.87); Eosinophils % 0.6 % (0.00-10.9); Hematocrit 19.1 VOL% (42.0-52.0); Immature Granulocytes % 0.4 %; Immature Granulocytes Absolute 0.04 #; Lymphocytes # 0.5 10*3/uL (1.4-4.0); Lymphocytes % 5.7 % (21.2-54.2); Mean Corpuscular HGB Conc 29.8 GM/DL (32-36); Mean Corpuscular Volume 85.7 FL (87-102); Mean Platelet Volume 9.5 FL (9.6-12.0); Monocytes % 10.5 % (1.7-12.7); Neutrophils % 82.6 % (38.7-73.9); Platelet Count 158 T/CUMM (130-400); Red Blood Count 2.23 MC/CUMM (3.8-5.5); Red Cell Distribution Width 22.8 % (9.3-17.3); White Blood Count 9.3 T/CUMM (4-12)
[2021-01-08 05:51] LABS: Hemoglobin 5.7 GM/DL (14.0-18.0)
[2021-01-08 05:59] LABS: Calcium 7.5 MG/DL (8.5-10.1); Osmolality,Calculated 288.5 MOS/KG (273-304); Potassium 4.4 MMOL/L (3.5-5.1)
[2021-01-08] MEDS ORDERED: MAGNESIUM HYDROXIDE SUSP 30 ML UDCUP PO ONE (07:44)
[2021-01-08 08:23] LABS: % Iron Saturation 7.7 % (18-50)
[2021-01-08] MEDS ORDERED: VANCOMYCIN INJ 750 MG in SODIUM CHLORIDE 0.9% 250 ML IV ONE (08:25)
[2021-01-08] MEDS: DOCUSATE SODIUM 100 MG CAPSULE PO SCH ×2 (08:38→20:42)
[2021-01-08] MEDS: PANTOPRAZOLE 40 MG TABLET PO SCH (08:38)
[2021-01-08] MEDS: SEVELAMER CARBONATE 800 MG TABLET PO SCH ×3 (08:38→20:42)
[2021-01-08] MEDS: FUROSEMIDE 40 MG/4 ML VIAL IV SCH ×2 (08:42→17:46)
[2021-01-08 08:51] LABS: INR 1.3; PT Patient Result 14.2 SECS (10.5-12.0)
[2021-01-08] MEDS ORDERED: VANCOMYCIN INJ 1,250 MG in SODIUM CHLORIDE 0.9% 250 ML IV PRN (09:08)
[2021-01-08 09:28] LABS: Folate 4.47 NG/ML (5.38-24.0)
[2021-01-08] MEDS: cloNIDine 0.1 MG TABLET PO SCH ×2 (14:03→20:42)
[2021-01-08] MEDS: LOSARTAN 50 MG TABLET PO SCH (14:04)
[2021-01-08] MEDS: carvediloL 12.5 MG TABLET PO SCH ×2 (14:04→20:42)
[2021-01-08] MEDS: POLYETHYLENE GLYCOL POWDER 17 GM PACK PO SCH (14:15)
[2021-01-08] MEDS: PIPERACILLIN/TAZOBACTAM 3,375 MG in SODIUM CHLORIDE 0.9% 100 ML IV SCH ×2 (14:18→20:39)
[2021-01-08] MEDS: FOLIC ACID 1 MG TABLET PO SCH (20:42)
[2021-01-08 21:29] LABS: Bilirubin,Urine Negative (Negative); Blood, Urine Small mg/dL (Negative); Glucose,Urine (UA) Negative (Negative); Ketones,Urine Negative (Negative); Nitrite,Urine Negative (Negative); Protein,Urine 30 MG/DL; RBC,Urine 19 /HPF (0-4); Squamous Epithelial Cell,Urine Occasional /HPF (0-10); Urine Appearance Slightly Hazy (Clear); Urine Specific Gravity 1.012 (1.001-1.035)
[2021-01-08 21:31] LABS: Urine Color Yellow (Yellow)
[2021-01-09] MEDS: PIPERACILLIN/TAZOBACTAM 3,375 MG in SODIUM CHLORIDE 0.9% 100 ML IV SCH ×2 (04:18→13:34)
[2021-01-09 06:21] LABS: Albumin 2.6 G/DL (3.4-5.0); Bilirubin,Direct 1.43 MG/DL (0.0-0.20); Bilirubin,Indirect 2.3 MG/DL (0.0-1.0); Bilirubin,Total 3.7 MG/DL (0.20-1.00); Total Protein 6.3 G/DL (6.4-8.2)
[2021-01-09 08:26] LABS: Calcium 7.6 MG/DL (8.5-10.1); Osmolality,Calculated 278.1 MOS/KG (273-304); Potassium 4.1 MMOL/L (3.5-5.1)
[2021-01-09 08:28] LABS: Basophils % 0.3 % (0.0-0.8); Eosinophils # 0.1 10*3/uL (0.0-0.87); Eosinophils % 1.8 % (0.00-10.9); Hematocrit 21.3 VOL% (42.0-52.0); Hemoglobin 6.5 GM/DL (14.0-18.0); Immature Granulocytes % 0.4 %; Immature Granulocytes Absolute 0.03 #; Lymphocytes # 0.5 10*3/uL (1.4-4.0); Lymphocytes % 6.3 % (21.2-54.2); Mean Corpuscular HGB Conc 30.5 GM/DL (32-36); Mean Corpuscular Volume 85.5 FL (87-102); Mean Platelet Volume 9.4 FL (9.6-12.0); Monocytes % 10.1 % (1.7-12.7); Neutrophils % 81.1 % (38.7-73.9); Platelet Count 174 T/CUMM (130-400); Red Blood Count 2.49 MC/CUMM (3.8-5.5); Red Cell Distribution Width 21.6 % (9.3-17.3); White Blood Count 7.9 T/CUMM (4-12)
[2021-01-09] MEDS: DOCUSATE SODIUM 100 MG CAPSULE PO SCH ×2 (10:14→21:06)
[2021-01-09] MEDS: cloNIDine 0.1 MG TABLET PO SCH ×2 (10:14→21:06)
[2021-01-09] MEDS: carvediloL 12.5 MG TABLET PO SCH ×2 (10:14→21:06)
[2021-01-09] MEDS: LOSARTAN 50 MG TABLET PO SCH (10:15)
[2021-01-09] MEDS: PANTOPRAZOLE 40 MG TABLET PO SCH (10:15)
[2021-01-09] MEDS: POLYETHYLENE GLYCOL POWDER 17 GM PACK PO SCH (10:15)
[2021-01-09] MEDS: FOLIC ACID 1 MG TABLET PO SCH ×2 (10:15→21:06)
[2021-01-09] MEDS: SEVELAMER CARBONATE 800 MG TABLET PO SCH ×3 (10:15→21:06)
[2021-01-09] MEDS: FUROSEMIDE 40 MG/4 ML VIAL IV SCH ×2 (13:34→15:02)
[2021-01-09] MEDS: FERRIC GLUCONATE COMPLEX 125 MG in SODIUM CHLORIDE 0.9% 100 ML IV SCH (13:37)
[2021-01-09] MEDS ORDERED: VANCOMYCIN INJ 1,250 MG in SODIUM CHLORIDE 0.9% 250 ML IV ONE (17:00)
[2021-01-10] MEDS: PIPERACILLIN/TAZOBACTAM 3,375 MG in SODIUM CHLORIDE 0.9% 100 ML IV SCH ×2 (03:41→13:30)
[2021-01-10 04:25] LABS: Basophils # 0.1 10*3/uL (0.0-0.2); Basophils % 0.6 % (0.0-0.8); Eosinophils # 0.2 10*3/uL (0.0-0.87); Eosinophils % 1.9 % (0.00-10.9); Hematocrit 26.3 VOL% (42.0-52.0); Hemoglobin 8.2 GM/DL (14.0-18.0); Immature Granulocytes % 0.5 %; Immature Granulocytes Absolute 0.04 #; Lymphocytes # 0.6 10*3/uL (1.4-4.0); Lymphocytes % 6.8 % (21.2-54.2); Mean Corpuscular HGB Conc 31.2 GM/DL (32-36); Mean Corpuscular Volume 85.4 FL (87-102); Mean Platelet Volume 9.1 FL (9.6-12.0); Neutrophils % 80.2 % (38.7-73.9); Platelet Count 206 T/CUMM (130-400); Red Blood Count 3.08 MC/CUMM (3.8-5.5); White Blood Count 8.8 T/CUMM (4-12)
[2021-01-10 04:41] LABS: Calcium 7.6 MG/DL (8.5-10.1); Potassium 4.2 MMOL/L (3.5-5.1)
[2021-01-10 05:11] LABS: Anisocytosis 2+; Microcytosis 1+; Platelet Estimate Normal
[2021-01-10 05:12] LABS: Polychromasia Slight
[2021-01-10 05:17] LABS: Stomatocytes Slight
[2021-01-10] MEDS: FOLIC ACID 1 MG TABLET PO SCH ×2 (10:19→22:45)
[2021-01-10] MEDS: LOSARTAN 50 MG TABLET PO SCH (10:20)
[2021-01-10] MEDS: carvediloL 12.5 MG TABLET PO SCH ×2 (10:20→22:45)
[2021-01-10] MEDS: DOCUSATE SODIUM 100 MG CAPSULE PO SCH ×2 (10:20→22:45)
[2021-01-10] MEDS: SEVELAMER CARBONATE 800 MG TABLET PO SCH ×3 (10:20→22:44)
[2021-01-10] MEDS: PANTOPRAZOLE 40 MG TABLET PO SCH (10:20)
[2021-01-10] MEDS: FUROSEMIDE 40 MG/4 ML VIAL IV SCH ×2 (10:20→15:24)
[2021-01-10] MEDS: FERRIC GLUCONATE COMPLEX 125 MG in SODIUM CHLORIDE 0.9% 100 ML IV SCH (10:21)
[2021-01-10] MEDS: POLYETHYLENE GLYCOL POWDER 17 GM PACK PO SCH ×3 (10:21→22:51)
[2021-01-10] MEDS ORDERED: LACTULOSE 20 GM/30 ML UDCUP PO ONE (11:40)
[2021-01-10] MEDS: hydrALAZINE 20 MG/1 ML VIAL IV PRN (16:45)
[2021-01-11] MEDS: PIPERACILLIN/TAZOBACTAM 3,375 MG in SODIUM CHLORIDE 0.9% 100 ML IV SCH (03:31)
[2021-01-11 05:09] LABS: Basophils % 0.4 % (0.0-0.8); Eosinophils # 0.2 10*3/uL (0.0-0.87); Eosinophils % 2.6 % (0.00-10.9); Hemoglobin 8.3 GM/DL (14.0-18.0); Immature Granulocytes % 0.4 %; Immature Granulocytes Absolute 0.03 #; Lymphocytes # 0.6 10*3/uL (1.4-4.0); Mean Corpuscular HGB Conc 30.7 GM/DL (32-36); Mean Corpuscular Volume 86.8 FL (87-102); Monocytes % 8.9 % (1.7-12.7); Neutrophils % 79.7 % (38.7-73.9); Platelet Count 219 T/CUMM (130-400); Red Blood Count 3.11 MC/CUMM (3.8-5.5); Red Cell Distribution Width 20.8 % (9.3-17.3); White Blood Count 7.3 T/CUMM (4-12)
[2021-01-11 05:27] LABS: Calcium 7.4 MG/DL (8.5-10.1); Osmolality,Calculated 277.1 MOS/KG (273-304); Potassium 4.5 MMOL/L (3.5-5.1)
[2021-01-11] MEDS ORDERED: carvediloL 25 MG TABLET PO SCH (09:00)
[2021-01-11] MEDS: PANTOPRAZOLE 40 MG TABLET PO SCH (09:10)
[2021-01-11] MEDS: SEVELAMER CARBONATE 800 MG TABLET PO SCH ×3 (09:10→21:16)
[2021-01-11] MEDS: LOSARTAN 50 MG TABLET PO SCH (09:10)
[2021-01-11] MEDS: DOCUSATE SODIUM 100 MG CAPSULE PO SCH ×2 (09:10→21:17)
[2021-01-11] MEDS: FOLIC ACID 1 MG TABLET PO SCH ×2 (09:10→21:15)
[2021-01-11] MEDS: FUROSEMIDE 40 MG/4 ML VIAL IV SCH ×2 (09:11→15:30)
[2021-01-11] MEDS: POLYETHYLENE GLYCOL POWDER 17 GM PACK PO SCH ×3 (09:13→21:17)
[2021-01-11] MEDS: FERRIC GLUCONATE COMPLEX 125 MG in SODIUM CHLORIDE 0.9% 100 ML IV SCH (09:44)
[2021-01-11] MEDS: carvediloL 12.5 MG TABLET PO SCH (17:44)
[2021-01-11] MEDS: AMOXICILLIN/CLAV 500 MG TABLET PO SCH (21:16)
[2021-01-12 06:20] LABS: Basophils % 0.4 % (0.0-0.8); Eosinophils # 0.2 10*3/uL (0.0-0.87); Eosinophils % 2.5 % (0.00-10.9); Hematocrit 25.7 VOL% (42.0-52.0); Hemoglobin 7.8 GM/DL (14.0-18.0); Immature Granulocytes % 0.5 %; Immature Granulocytes Absolute 0.04 #; Lymphocytes # 0.7 10*3/uL (1.4-4.0); Lymphocytes % 8.5 % (21.2-54.2); Mean Corpuscular HGB Conc 30.4 GM/DL (32-36); Mean Corpuscular Volume 87.1 FL (87-102); Mean Platelet Volume 9.5 FL (9.6-12.0); Monocytes % 9.8 % (1.7-12.7); Neutrophils % 78.3 % (38.7-73.9); Platelet Count 221 T/CUMM (130-400); Red Blood Count 2.95 MC/CUMM (3.8-5.5); Red Cell Distribution Width 20.3 % (9.3-17.3); White Blood Count 7.7 T/CUMM (4-12)
[2021-01-12 06:29] LABS: INR 1.2; PT Patient Result 13.8 SECS (10.5-12.0)
[2021-01-12 06:51] LABS: Calcium 7.4 MG/DL (8.5-10.1); Osmolality,Calculated 277.2 MOS/KG (273-304); Potassium 4.7 MMOL/L (3.5-5.1)
[2021-01-12] MEDS ORDERED: SODIUM CHLORIDE 0.9% 1,000 ML IV PRN (09:40)
[2021-01-12] MEDS ORDERED: TISSUE ADHESIVE 1 EACH APPLICATOR TOP ONE (10:51)
[2021-01-12] MEDS: SEVELAMER CARBONATE 800 MG TABLET PO SCH ×4 (11:48→21:26)
[2021-01-12] MEDS: FERRIC GLUCONATE COMPLEX 125 MG in SODIUM CHLORIDE 0.9% 100 ML IV SCH (11:48)
[2021-01-12] MEDS: LOSARTAN 50 MG TABLET PO SCH (11:50)
[2021-01-12] MEDS: carvediloL 12.5 MG TABLET PO SCH ×2 (11:50→16:57)
[2021-01-12] MEDS: AMOXICILLIN/CLAV 500 MG TABLET PO SCH ×2 (11:50→21:27)
[2021-01-12] MEDS: DOCUSATE SODIUM 100 MG CAPSULE PO SCH ×2 (11:50→21:27)
[2021-01-12] MEDS: FOLIC ACID 1 MG TABLET PO SCH ×2 (11:50→21:27)
[2021-01-12] MEDS: PANTOPRAZOLE 40 MG TABLET PO SCH (11:50)
[2021-01-12] MEDS: POLYETHYLENE GLYCOL POWDER 17 GM PACK PO SCH ×3 (11:51→22:35)
[2021-01-12] MEDS: FUROSEMIDE 40 MG/4 ML VIAL IV SCH ×2 (11:56→17:00)
[2021-01-12 12:28] LABS: Total Protein,Peritoneal Fluid 3.2 G/DL
[2021-01-13] MEDS: hydrALAZINE 20 MG/1 ML VIAL IV PRN (02:22)
[2021-01-13 05:08] LABS: Basophils % 0.4 % (0.0-0.8); Eosinophils # 0.2 10*3/uL (0.0-0.87); Hematocrit 27.8 VOL% (42.0-52.0); Hemoglobin 8.3 GM/DL (14.0-18.0); Immature Granulocytes % 0.4 %; Immature Granulocytes Absolute 0.03 #; Lymphocytes # 0.6 10*3/uL (1.4-4.0); Lymphocytes % 7.2 % (21.2-54.2); Mean Corpuscular HGB Conc 29.9 GM/DL (32-36); Mean Corpuscular Volume 88.5 FL (87-102); Mean Platelet Volume 9.2 FL (9.6-12.0); Monocytes % 9.5 % (1.7-12.7); Neutrophils % 80.5 % (38.7-73.9); Platelet Count 222 T/CUMM (130-400); Red Blood Count 3.14 MC/CUMM (3.8-5.5); Red Cell Distribution Width 20.4 % (9.3-17.3); White Blood Count 7.9 T/CUMM (4-12)
[2021-01-13 05:36] LABS: Albumin 2.7 G/DL (3.4-5.0); Bilirubin,Total 3.1 MG/DL (0.20-1.00); Calcium 7.5 MG/DL (8.5-10.1); Osmolality,Calculated 271.7 MOS/KG (273-304); Potassium 4.8 MMOL/L (3.5-5.1); Total Protein 6.9 G/DL (6.4-8.2)
[2021-01-13] MEDS: AMOXICILLIN/CLAV 500 MG TABLET PO SCH (08:31)
[2021-01-13] MEDS: DOCUSATE SODIUM 100 MG CAPSULE PO SCH (08:32)
[2021-01-13] MEDS: FOLIC ACID 1 MG TABLET PO SCH (08:32)
[2021-01-13] MEDS: PANTOPRAZOLE 40 MG TABLET PO SCH (08:32)
[2021-01-13] MEDS: LOSARTAN 50 MG TABLET PO SCH (08:32)
[2021-01-13] MEDS: SEVELAMER CARBONATE 800 MG TABLET PO SCH ×2 (08:32→16:40)
[2021-01-13] MEDS: carvediloL 12.5 MG TABLET PO SCH ×2 (08:33→16:40)
[2021-01-13] MEDS: FUROSEMIDE 40 MG/4 ML VIAL IV SCH ×2 (08:38→16:45)
[2021-01-13] MEDS: POLYETHYLENE GLYCOL POWDER 17 GM PACK PO SCH ×2 (08:42→16:41)
[2021-01-13] MEDS: FERRIC GLUCONATE COMPLEX 125 MG in SODIUM CHLORIDE 0.9% 100 ML IV SCH (09:44)
[2021-01-13 17:37] VITALS: BP 147/81
[2021-01-14 13:04] LABS: Alpha-1-Antitrypsin, Serum 216 mg/dL (100 - 190)
== END 2021-01-13 18:50 | disposition home or self-care (01) | DRG 604 ==
LOC: N.ED 21:17 → SUATTDRO 01-07 04:17 → N.EDINP 01-07 04:17 → N.TELES 01-07 07:47
PROVIDERS: ADMIT Internal Medicine; ATTEND Internal Medicine

== ENCOUNTER 2021-01-14 22:45 | Inpatient (IN) ==
[2021-01-14] MEDS ORDERED: ONDANSETRON 4 MG/2 ML VIAL IV STA (23:40)
[2021-01-14] MEDS ORDERED: HYDROmorphone 2 MG/1 ML VIAL IV STA (23:40)
[2021-01-14] MEDS ORDERED: hydrALAZINE 20 MG/1 ML VIAL IV STA (23:51)
[2021-01-15 00:20] LABS: Basophils # 0.1 10*3/uL (0.0-0.2); Basophils % 0.4 % (0.0-0.8); Eosinophils # 0.1 10*3/uL (0.0-0.87); Eosinophils % 0.8 % (0.00-10.9); Hemoglobin 8.6 GM/DL (14.0-18.0); Immature Granulocytes % 0.7 %; Immature Granulocytes Absolute 0.08 #; Lymphocytes # 0.6 10*3/uL (1.4-4.0); Lymphocytes % 5.2 % (21.2-54.2); Mean Corpuscular HGB Conc 29.7 GM/DL (32-36); Mean Corpuscular Volume 90.1 FL (87-102); Monocytes % 8.4 % (1.7-12.7); Neutrophils % 84.5 % (38.7-73.9); Platelet Count 242 T/CUMM (130-400); Red Blood Count 3.22 MC/CUMM (3.8-5.5); Red Cell Distribution Width 20.1 % (9.3-17.3); White Blood Count 12.2 T/CUMM (4-12)
[2021-01-15 00:40] LABS: Albumin 3.1 G/DL (3.4-5.0); Bilirubin,Total 1.9 MG/DL (0.20-1.00); Calcium 7.9 MG/DL (8.5-10.1); Osmolality,Calculated 279.2 MOS/KG (273-304); Potassium 4.8 MMOL/L (3.5-5.1); Total Protein 7.6 G/DL (6.4-8.2)
[2021-01-15 00:51] LABS: INR 1.3; Partial Thromboplastin Time 30.5 SECS (23.8-32.1)
[2021-01-15 00:56] LABS: PT Patient Result 14.1 SECS (10.5-12.0)
[2021-01-15] MEDS ORDERED: HYDROmorphone 2 MG/1 ML VIAL IV STA (01:21)
[2021-01-15] MEDS ORDERED: LABETALOL 100 MG/20 ML VIAL IV STA (01:21)
[2021-01-15] MEDS ORDERED: diphenhydrAMINE CAP 25 MG CAPSULE PO PRN (03:03)
[2021-01-15] MEDS ORDERED: GLUCAGON 1 MG VIAL IM PRN (03:03)
[2021-01-15] MEDS ORDERED: NICOTINE 21 MG/24 HR PATCH TRANSDERM PRN (03:03)
[2021-01-15] MEDS ORDERED: ONDANSETRON 4 MG/2 ML VIAL IV PRN (03:03)
[2021-01-15] MEDS ORDERED: guaiFENesin/DM ER 600-30 MG TABLET PO PRN (03:03)
[2021-01-15] MEDS ORDERED: DEXTROSE 50% 25 GM/50 ML VIAL IV PRN (03:03)
[2021-01-15] MEDS ORDERED: ZALEPLON 5 MG CAPSULE PO PRN (03:03)
[2021-01-15] MEDS ORDERED: ACETAMINOPHEN 325 MG TABLET PO PRN (03:03)
[2021-01-15] MEDS ORDERED: DOCUSATE SODIUM 100 MG CAPSULE PO PRN (03:03)
[2021-01-15] MEDS: hydrALAZINE 20 MG/1 ML VIAL IV PRN ×2 (03:24→11:12)
[2021-01-15 04:30] LABS: Basophils % 0.1 % (0.0-0.8); Hematocrit 27.6 VOL% (42.0-52.0); Hemoglobin 8.2 GM/DL (14.0-18.0); Immature Granulocytes % 0.9 %; Immature Granulocytes Absolute 0.12 #; Lymphocytes # 0.5 10*3/uL (1.4-4.0); Lymphocytes % 3.5 % (21.2-54.2); Mean Corpuscular HGB Conc 29.7 GM/DL (32-36); Mean Corpuscular Volume 90.5 FL (87-102); Mean Platelet Volume 9.2 FL (9.6-12.0); Monocytes % 6.6 % (1.7-12.7); Neutrophils % 88.9 % (38.7-73.9); Platelet Count 234 T/CUMM (130-400); Red Blood Count 3.05 MC/CUMM (3.8-5.5); White Blood Count 13.6 T/CUMM (4-12)
[2021-01-15 04:52] LABS: Bilirubin,Total 1.8 MG/DL (0.20-1.00); Calcium 7.9 MG/DL (8.5-10.1); Lymphocytes 3 % (20-55); Osmolality,Calculated 279.4 MOS/KG (273-304); Potassium 5.1 MMOL/L (3.5-5.1); Segmented Neutrophils 92 % (50-85); Total Cells Counted 100; Total Protein 7.4 G/DL (6.4-8.2)
[2021-01-15 04:53] LABS: Hypochromasia 2+; Platelet Estimate Normal; Schistocytes Few
[2021-01-15] MEDS: cloNIDine 0.1 MG TABLET PO SCH ×2 (08:59→20:46)
[2021-01-15] MEDS: FERROUS SULFATE 325 MG TABLET PO SCH ×2 (09:00→20:46)
[2021-01-15] MEDS: FOLIC ACID 1 MG TABLET PO SCH ×2 (09:00→20:46)
[2021-01-15] MEDS: carvediloL 12.5 MG TABLET PO SCH ×2 (09:00→20:46)
[2021-01-15] MEDS: LOSARTAN 50 MG TABLET PO SCH (09:00)
[2021-01-15] MEDS: PANTOPRAZOLE 40 MG TABLET PO SCH (09:01)
[2021-01-15] MEDS: FUROSEMIDE 80 MG TABLET PO SCH (10:31)
[2021-01-15] MEDS: SEVELAMER CARBONATE 800 MG TABLET PO SCH ×3 (10:31→16:16)
[2021-01-15 11:07] LABS: AFP Tumor < 2.2 NG/ML (0-8); Cancer Antigen 19-9 < 1.20 U/ML (0-35)
[2021-01-15] MEDS: AMOXICILLIN/CLAV 500 MG TABLET PO SCH (20:46)
[2021-01-15] MEDS: MORPHINE 2 MG/1 ML SYRINGE IV PRN (21:37)
[2021-01-16 07:14] LABS: Albumin 2.6 G/DL (3.4-5.0); Bilirubin,Total 1.8 MG/DL (0.20-1.00); Calcium 8.1 MG/DL (8.5-10.1); Osmolality,Calculated 282.8 MOS/KG (273-304); Potassium 5.3 MMOL/L (3.5-5.1); Total Protein 6.4 G/DL (6.4-8.2)
[2021-01-16 07:56] LABS: Basophils % 0.2 % (0.0-0.8); Eosinophils % 0.1 % (0.00-10.9); Lymphocytes # 0.6 10*3/uL (1.4-4.0); Lymphocytes % 4.9 % (21.2-54.2); Mean Corpuscular HGB Conc 30.4 GM/DL (32-36); Mean Corpuscular Volume 89.5 FL (87-102); Mean Platelet Volume 9.3 FL (9.6-12.0); Monocytes % 10.6 % (1.7-12.7); Neutrophils % 83.8 % (38.7-73.9); Platelet Count 161 T/CUMM (130-400); Red Blood Count 1.91 MC/CUMM (3.8-5.5); Red Cell Distribution Width 20.1 % (9.3-17.3); White Blood Count 11.7 T/CUMM (4-12)
[2021-01-16 08:05] LABS: Hemoglobin 5.2 GM/DL (14.0-18.0)
[2021-01-16 08:06] LABS: Hematocrit 17.1 VOL% (42.0-52.0)
[2021-01-16 08:29] LABS: Hypochromasia 1+; Lymphocytes 2 % (20-55); Microcytosis 1+; Segmented Neutrophils 90 % (50-85)
[2021-01-16 08:30] LABS: Platelet Estimate Adequate
[2021-01-16] MEDS ORDERED: SODIUM CHLORIDE 0.9% 1,000 ML IV PRN ×2 (08:57→16:23)
[2021-01-16] MEDS: MORPHINE 2 MG/1 ML SYRINGE IV PRN ×2 (09:37→14:50)
[2021-01-16] MEDS: SEVELAMER CARBONATE 800 MG TABLET PO SCH ×3 (09:48→18:34)
[2021-01-16] MEDS: cloNIDine 0.1 MG TABLET PO SCH ×2 (09:48→20:28)
[2021-01-16] MEDS: FERROUS SULFATE 325 MG TABLET PO SCH ×2 (09:48→20:34)
[2021-01-16] MEDS: carvediloL 12.5 MG TABLET PO SCH ×2 (09:48→20:30)
[2021-01-16] MEDS: LOSARTAN 50 MG TABLET PO SCH (09:49)
[2021-01-16] MEDS: FUROSEMIDE 80 MG TABLET PO SCH (09:50)
[2021-01-16] MEDS: PANTOPRAZOLE 40 MG TABLET PO SCH (09:54)
[2021-01-16] MEDS: FOLIC ACID 1 MG TABLET PO SCH ×2 (09:54→20:29)
[2021-01-16] MEDS ORDERED: VANCOMYCIN INJ 750 MG in SODIUM CHLORIDE 0.9% 250 ML IV ONE (15:30)
[2021-01-16 16:13] LABS: Hematocrit 16.8 VOL% (42.0-52.0); Hemoglobin 5.1 GM/DL (14.0-18.0)
[2021-01-16 18:41] LABS: Hematocrit 16.7 VOL% (42.0-52.0); Hemoglobin 5.1 GM/DL (14.0-18.0)
[2021-01-16] MEDS: AMOXICILLIN/CLAV 500 MG TABLET PO SCH (20:29)
[2021-01-17 02:34] LABS: Hematocrit 17.6 VOL% (42.0-52.0); Hemoglobin 5.5 GM/DL (14.0-18.0)
[2021-01-17] MEDS ORDERED: ONDANSETRON 4 MG/2 ML VIAL IV PRN (08:36)
[2021-01-17] MEDS ORDERED: HYDROmorphone 2 MG/1 ML VIAL IV PRN (08:36)
[2021-01-17] MEDS ORDERED: diphenhydrAMINE 50 MG/1 ML VIAL IV PRN (08:36)
[2021-01-17] MEDS ORDERED: PROMETHAZINE INJ 25 MG in SODIUM CHLORIDE 0.9% 50 ML IV PRN (08:36)
[2021-01-17] MEDS ORDERED: MEPERIDINE 50 MG/1 ML VIAL IV PRN (08:44)
[2021-01-17] MEDS: MORPHINE 2 MG/1 ML SYRINGE IV PRN (08:45)
[2021-01-17] MEDS ORDERED: SODIUM CHLORIDE 0.9% 1,000 ML IV PRN (10:01)
[2021-01-17] MEDS ORDERED: SUCCINYLCHOLINE 200 MG/10 ML VIAL ONE (10:14)
[2021-01-17] MEDS ORDERED: SEVOFLURANE 1 UNIT/15 MINUTE INH ONE ×3 (10:14→11:05)
[2021-01-17] MEDS ORDERED: ETOMIDATE 40 MG/20 ML VIAL IV ONE (10:14)
[2021-01-17] MEDS ORDERED: LIDOCAINE 2% 5 ML VIAL ONE (10:14)
[2021-01-17] MEDS ORDERED: fentaNYL 100 MCG/2 ML VIAL ONE (10:14)
[2021-01-17] MEDS ORDERED: propofoL 200 MG/20 ML VIAL IV ONE (10:14)
[2021-01-17] MEDS ORDERED: MIDAZOLAM 2 MG/2 ML VIAL ONE (10:14)
[2021-01-17] MEDS ORDERED: ROCURONIUM 50 MG/5 ML VIAL IV ONE (10:15)
[2021-01-17] MEDS ORDERED: DEXAMETHASONE 4 MG/1 ML VIAL ONE (10:15)
[2021-01-17] MEDS ORDERED: ONDANSETRON 4 MG/2 ML VIAL ONE (10:15)
[2021-01-17] MEDS ORDERED: ePHEDrine 50 MG/ML VIAL ONE ×2 (10:41→10:57)
[2021-01-17] MEDS ORDERED: SODIUM CHLORIDE 0.9% 100 ML IV ONE (11:05)
[2021-01-17] MEDS ORDERED: PHENYLEPHRINE 10 MG/1 ML VIAL IV ONE (11:05)
[2021-01-17] MEDS ORDERED: PHENYLEPHRINE 1 MG/10 ML SYRINGE IV ONE (11:09)
[2021-01-17 12:41] VITALS: BP 134/68
[2021-01-17 12:41] LABS: Basophils % 0.2 % (0.0-0.8); Eosinophils # 0.1 10*3/uL (0.0-0.87); Eosinophils % 0.5 % (0.00-10.9); Hematocrit 21.9 VOL% (42.0-52.0); Hemoglobin 6.7 GM/DL (14.0-18.0); Immature Granulocytes % 0.4 %; Immature Granulocytes Absolute 0.04 #; Lymphocytes # 0.5 10*3/uL (1.4-4.0); Lymphocytes % 4.8 % (21.2-54.2); Mean Corpuscular HGB Conc 30.6 GM/DL (32-36); Mean Corpuscular Volume 89.4 FL (87-102); Mean Platelet Volume 10.1 FL (9.6-12.0); Monocytes % 8.8 % (1.7-12.7); Neutrophils % 85.3 % (38.7-73.9); Platelet Count 99 T/CUMM (130-400); Red Blood Count 2.45 MC/CUMM (3.8-5.5); Red Cell Distribution Width 17.7 % (9.3-17.3); White Blood Count 9.3 T/CUMM (4-12)
[2021-01-17 12:52] LABS: INR 1.2; PT Patient Result 12.9 SECS (10.5-12.0)
[2021-01-17 12:59] LABS: Albumin 2.6 G/DL (3.4-5.0); Bilirubin,Total 2.1 MG/DL (0.20-1.00); Calcium 7.6 MG/DL (8.5-10.1); Osmolality,Calculated 278.4 MOS/KG (273-304); Potassium 5.7 MMOL/L (3.5-5.1); Total Protein 6.5 G/DL (6.4-8.2)
[2021-01-17 13:36] LABS: Lymphocytes 3 % (20-55); Segmented Neutrophils 90 % (50-85); Total Cells Counted 100
[2021-01-17 13:37] LABS: Anisocytosis 2+; Hypochromasia 1+; Microcytosis 1+; Platelet Estimate Decreased; Poikilocytosis Slight; Polychromasia 1+; Schistocytes Slight; Target Cells Few
[2021-01-17] MEDS: SEVELAMER CARBONATE 800 MG TABLET PO SCH (16:12)
[2021-01-17] MEDS: cloNIDine 0.1 MG TABLET PO SCH (16:13)
[2021-01-17] MEDS: FOLIC ACID 1 MG TABLET PO SCH (16:14)
[2021-01-17] MEDS: FUROSEMIDE 80 MG TABLET PO SCH (16:14)
[2021-01-17] MEDS: LOSARTAN 50 MG TABLET PO SCH (16:14)
[2021-01-17] MEDS: FERROUS SULFATE 325 MG TABLET PO SCH (16:14)
[2021-01-17] MEDS: carvediloL 12.5 MG TABLET PO SCH (16:14)
[2021-01-17] MEDS: PANTOPRAZOLE 40 MG TABLET PO SCH (16:15)
== END 2021-01-17 15:51 | disposition hospice, home (50) | DRG 829 ==
LOC: EDBD → EDUNIT# → N.ED 22:45 → N.EDINP 01-15 04:56 → INTOOBSV 01-15 04:56 → N.EDINP 01-15 14:12 → N.TELES 01-15 15:43
PROVIDERS: ADMIT Internal Medicine; ATTEND Internal Medicine
PROC: FASCLOA (2021-01-17 10:25)